=== PATIENT | male | born 1980 | race Caucasian/White ===

== ENCOUNTER → 2018-12-06 08:36 | Outpatient (CLI) | payer MEDICARE, SELFPAY ==
--- NOTE | 2018-12-06 08:18 | RAD_ITS ---
STUDY: X-RAY - LUMBAR SPINE REASON FOR EXAM: Male, 38 years old. Low back pain, no known injury TECHNIQUE: 4 view(s) of the lumbar spine were obtained. COMPARISON: None FINDINGS: Normal lumbar lordosis. There is no substantial scoliosis. There is a normal alignment of the vertebrae. Normal vertebral bodies and endplates. Normal disc space heights. The soft tissue structures are unremarkable. RAD/L/S Spine Bending Flex/Ext IMPRESSION: Normal x-ray examination of the lumbar spine. Electronically Signed: Torey Ardon MD at 19:42 EDT , Service support ,
--- NOTE | 2018-12-06 08:45 | US_ITS ---
STUDY: ABDOMINAL ULTRASOUND REASON FOR EXAM: Male, 38 years old. Abdominal pain, nausea and vomiting. TECHNIQUE: Transabdominal ultrasound was performed with real-time and static alford scale imaging. TECHNICAL QUALITY: Adequate. COMPARISON: None. FINDINGS: Liver: The liver measures 16 cm. There is increased echogenicity consistent with fatty infiltration. The bile ducts are within normal limits. There is hepatic color flow. The direction of portal flow is hepatopetal. There is no demonstrated mass lesion. Gallbladder: Normal distended gallbladder. The gallbladder wall measures 2 mm. There is a negative sonographic Paiz's sign. There is no pericholecystic fluid. There is a small echogenic shadow appears to be attached to the gallbladder wall measures about 3 mm which could represent small gallbladder polyp. Common Bile Duct (C.B.D.): The common bile duct measures 3 mm. Pancreas: The pancreas as seen on this examination is grossly unremarkable. There is normal echogenicity of the pancreas. There is no demonstrated pancreatic mass or cyst. Spleen: The spleen is borderline in size. The spleen measures 12.6 cm. Right Kidney: Normal size of the right kidney. The right kidney measures 11.2 x 5 x 5.4 cm. Normal renal cortex. The right cortex measures 1.8 cm. There is no demonstrated renal mass or cyst. There is no right hydronephrosis. Left Kidney: Normal size of the left kidney. The left kidney measures 11.9 x 5 x 5 cm. Normal renal cortex. The left cortex measures 1.9 cm. There is no demonstrated renal mass or cyst. There is no left hydronephrosis. Aorta: There is no demonstrated abdominal aortic aneurysm. The abdominal aorta measures 2.6 cm in maximal transverse diameter proximally, 1.8 cm the mid aspect and 1.7 cm distally. I.V.C.: The IVC is patent. There is no ascites. US/Abdomen Complete IMPRESSION: 1. Probable small gallbladder polyp. Follow-up examination 6 months is recommended. 2. Fatty infiltration of the liver. 3. No evidence of hydronephrosis. Electronically Signed: Byron Tejeda MD at 15:58 EDT Tel , Service support ,
== END ==
PROVIDERS: Family Provider Family Medicine; PCP Family Medicine; Referring Provider Family Medicine; Visit Provider Family Medicine
DX: M54.5 Low back pain (principal); G89.29 Other chronic pain; R11.0 Nausea; R11.10 Vomiting, unspecified; R10.9 Unspecified abdominal pain
CPT/HCPCS: 72120; 76700

== ENCOUNTER → 2019-01-08 16:11 | Outpatient (CLI) | payer MEDICARE, SELFPAY ==
[2019-01-07 08:15] VITALS: BMI 30.5
--- NOTE | 2019-01-08 16:18 | MRI_ITS ---
HISTORY:L leg pain, bilateral knee pain, low back pain MR Spine Lumbar W/O Contrast Technique:Sagittal T1-T2 and STIR and axial T1 and T2-weighted images # of images including paperwork:121 Comparison:Radiographs of the lumbar spine obtained on December 06, 2018 Findings: The conus ends at the T12-L1 disc space and appears within normal limits. T12-L1:Only seen within the sagittal plane. No disc contour abnormality or canal stenosis. No neural foraminal narrowing L1-2:Mild disc desiccation. No disc contour abnormality or canal stenosis. No neural foraminal narrowing L2-3: Disc height and hydration are preserved. There is no evidence of the disc contour abnormality or canal stenosis. No significant neural foraminal narrowing or nerve root impingement. L3-4:Minimal annular bulge. No canal stenosis. No significant neural foraminal narrowing or nerve impingement L4-5: Disc height and hydration are preserved. There is no evidence of the disc contour abnormality or canal stenosis. No significant neural foraminal narrowing or nerve root impingement. L5-S1:There is a tiny central disc protrusion effacing the ventral thecal sac. No canal stenosis. No significant nerve impingement MRI/Spine Lumbar (Routine) IMPRESSION: There is minimal degenerative disc disease at the level of L1-2 and to lesser extent L3-4. Tiny central disc protrusion at L5-S1 but no canal stenosis and no nerve impingement at 1748 Reported and signed by: Nahomi Worthington DO Electronically Signed: Nahomi Worthington DO at 17:47 EDT Tel , Service support ,
== END ==
PROVIDERS: Family Provider Family Medicine; PCP Family Medicine; Referring Provider Family Medicine; Visit Provider Family Medicine
DX: M54.5 Low back pain (principal); G89.29 Other chronic pain; M54.16 Radiculopathy, lumbar region
CPT/HCPCS: 72148

== ENCOUNTER → 2019-01-19 09:09 | Outpatient (CLI) | payer MEDICARE, SELFPAY ==
[2019-01-16 09:11] VITALS: BMI 30.5
--- NOTE | 2019-01-19 09:13 | NM_ITS ---
CLINICAL: 38-year-old male with reported history of right upper quadrant abdominal pain and nausea. RADIONUCLIDE HEPATOBILIARY SCINTIGRAPHY COMPARISON: Abdominal ultrasound report 12/06/2018 FINDINGS: Following the intravenous administration of 5.2 mCi of 99m Tc Mebrofenin, hepatobiliary images reveal: 1. Relatively prompt and homogeneous radiopharmaceutical concentration is noted by a normal sized liver. No parenchymal defects are identified. 2. Gallbladder activity is identified at 15 minutes post radiopharmaceutical administration. 3. Small intestinal tract is observed at 30 minutes following tracer injection. 4. Washout of the radiopharmaceutical by the hepatic parenchyma appears qualitatively normal. Cholecystokinin (0.02 ug/kg) was administered intravenously over a 30-minute period. The post CCK gallbladder ejection fraction calculated at 20 minutes following Cholecystokinin administration was noted to be 51.0 % (normal greater than 35%). During 30 minutes of post CCK imaging, there is no scintigraphic evidence of reflux of the radiotracer into the common hepatic duct or refilling of the gallbladder. There is scintigraphic evidence of post CCK duodenal gastric reflux. MI/Hepatobilliary Img w/Pharm Int IMPRESSION: 1. A gallbladder ejection fraction calculated to be greater than 35% following the administration of Cholecystokinin makes the probability of functional hepatobiliary disease (gallbladder and/or sphincter of Oddi dyskinesia) and/or organic hepatobiliary disease (chronic acalculous cholecystitis and/or cystic duct syndrome) to be low. (Luis Felipe Perdomo et al, Journal of Nuclear Medicine 32:1695, 1990). 2. There is scintigraphic evidence of post CCK duodenal-gastric reflux as defined above. (Rosaura et al, Nucl Med Maryann Kathy Press pg. 35, 1980). Electronically Signed: Tito Pacheco DO at 21:49 EDT Tel , Service support ,
== END ==
PROVIDERS: Family Provider Family Medicine; PCP Family Medicine; Referring Provider Surgery; Visit Provider Surgery
DX: K21.9 Gastro-esophageal reflux disease without esophagitis (principal); R10.9 Unspecified abdominal pain
CPT/HCPCS: 78227; A9537; J2805

== ENCOUNTER 2019-02-20 10:28 | Day surgery (SDC) | payer MEDICARE, SELFPAY ==
[2019-01-16 09:11] VITALS: BMI 30.5
--- NOTE | 2019-02-20 | GASB_PTH ---
PATIENT: CHARLINE GALINDO LOC: EN U#:[id number] AGE/SX: 38/M ROOM: RE02/20/[address]: Dr. Charline Zheng MD : 1980 BED: DIS: 02/20/2019 SPEC #: [id number] RECD: 02/20/19 13:04 STATUS: BRITTNEY QUANG #: [id number] VINCE: 02/20/19 00:[address]: Charline Zheng DEPT: SURGICAL PATHOLOGY RECD BY: Epi Lama ENTERED: 02/20/19 13:07 SP TYPE: Gastric Bx JARRELL DR: DO Ericka Hunt Tissues: A - Gastric mucous membrane B - Gastric mucous membrane Procedures: Surgery Specimen Level IV HEADER OPERATION: Colonoscopy, EGD ([facility] [place]) PRE-OP DIAGNOSIS: Vomiting, RLQ pain TISSUE SUBMITTED: A - Antral biopsy for H. pylori and pathology, B - GE junction biopsy MICROSCOPIC DIAGNOSIS A. Gastric antrum, biopsy: Mild chronic gastritis. B. Gastroesophageal junction, biopsy: Fragments of gastric mucosa with mild chronic inflammation. No evidence of intestinal metaplasia. BIENVENIDO:rene 02/23/19 COMMENT A. The results of immunohistochemistry for Helicobacter pylori will be reported separately ([id number]). Alcian blue/PAS stain with matched control supports the above diagnosis. Squamous mucosa is not represented in the biopsy. Clinical correlation is suggested. MICROSCOPIC DESCRIPTION Slides are reviewed. GROSS DESCRIPTION A. Received is one container labeled with the patient name and designated antral biopsy. The specimen consists of multiple irregular fragments of light allen soft tissue that in aggregate measure 0.4 x 0.4 x 0.1 cm. The specimen is totally submitted in one cassette. B. Received is one container labeled with the patient name and designated GE junction biopsy. The specimen consists of two irregular fragments of light allen soft tissue that in aggregate measure 0.5 x 0.3 x 0.1 cm. The specimen is totally submitted in one cassette. /SJ:rene 02/20/19 TC: 3 CPT: 87992 x2, 47351 x1
[2019-02-20 10:50] VITALS: BP 129/72; PULSE 73; RESP 16; TEMP 36.9; O2SAT 100; BMI 30.5
--- NOTE | 2019-02-20 11:30 | IMM_PTH ---
PATIENT: CHARLINE GALINDO LOC: EN U#:[id number] AGE/SX: 38/M ROOM: RE02/20/[address]: Dr. Charline Zheng MD : 1980 BED: DIS: 02/20/2019 SPEC #: [id number] RECD: 02/20/19 13:13 STATUS: BRITTNEY QUANG #: [id number] VINCE: 02/20/19 11:[address]: Charline Zheng DEPT: IMMUNOHISTOCHEMISTRY RECD BY: Izabel Cooper ENTERED: 02/20/19 13:14 SP TYPE: IMMUNO OTHR DR: DO Ericka Hunt Tissues: A - Stomach, NOS Procedures: H Pylori (initial) PHYSICIAN & INSTITUTION [place] [id number] SPECIMEN INFORMATION: Tissue Source: A - Antral biopsy Clinical Info: Vomiting, RLQ pain Specimen Number: [id number] CPT code: 58918 METHODOLOGY: Deparaffinized sections of prefer/formalin-fixed tissue or PAP/DQ stained slides are incubated with monoclonal/polyclonal antibodies/oligonucleotide probes. Localization is made via biotin free immunoperoxidase method. Appropriate controls are performed and reacted as expected. Results on target cell population are indicated in the following table: RESULTS: ANTIBODY / CLONE RESULT Block A H Pylori (polyclonal) negative These tests were developed and their performance characteristics determined by [facility]. They may not have been cleared or approved by the U.S. Food and Drug Administration. The FDA has determined that such clearance or approval is not necessary. INTERPRETATION: A. Antral biopsy: Negative for Helicobacter pylori organisms. AM:chris 02/23/19
--- NOTE | 2019-02-20 11:35 | H&P.OPEN ---
History of Present Illness Date of Admission: 02/20/19 The patient is a 38 year old M who was seen in the office about 1 month ago. Patient was complaining of vomiting and right lower quadrant pain. He reports that over the last week the vomiting has subsided but he is still having lower abdominal pain. He had a HIDA scan which showed normal ejection fraction. It did show reflux of bile. Past Medical/Surgical History - Planned Operation Planned Operative Procedure/s: egd/cscope Date of Operative Procedure: 02/20/19 Permit Signed: No S.O.S: No Is This Patient Having a Total Joint: No - Previous Hospitalizations/Surgeries HX Hospitalizations: No HX of Surgeries: heel spur left Any Problems With Anesthesia: No You/Your Family Experience Fever (Hyperthermia) With Anes: No Cholinesterase deficiency: No - Cardiovascular Hx Chest Pain within Last 2 months: No Hx of Irregular Heartbeat and/or Afib: No Hx Heart Attack: No Hx Congestive Heart Failure: No Hx Rheumatic Fever: No Hx Hypertension: No Hx Internal Defibrillator: No Hx Pacemaker: No Hx Cardiac Catheterization: No Hx Cardiac Surgery/Stents/Etc.: No Hx Stress Test: No HX Edema: No Hx Pain in Legs when Walking/Leg Cramps: Yes - PAIN TO LEGS - Respiratory Chronic Cough: Yes - SMOKER COUGH HX of Shortness of Breath: Yes - SOB WITH 2 FLIGHTS OF STAIRS Hoarseness: No Hx Chronic Obstructive Pulmonary Disease (COPD): No Hx Asthma: No Hx Emphysema: No Hx Sleep Apnea: No Hx Oxygen Use at Home: No Hx Respiratory Tract Infection/Cold (presently): No Do You Snore Loudly (louder than talking or can be heard): Yes Do You Often Feel Tired/ Fatigued/ Sleepy Dring Daytime?: Yes Has Anyone Observed You Stop Breathing During Sleep?: Yes Result (for STOP score): Positive Hx Smoking: Yes - 1-1.5PPD 20 YRS Smoking Status: Current every day smoker - Gastrointestinal Hx Gastroesophageal Reflux: Yes Controlled With Meds: No Hx Gastrointestinal Disorders: Yes - IBS Hx Gastrointestinal Bleed: No Hx Ulcer: No - . Hx Hiatal Hernia: No Difficulty Chewing/Swallowing: No Recent Onset of Swallowing Problems: No Special diet followed at home: No Hx Unplanned Weight Loss of 20#: No HX Unplanned Weight Gain of 20#: No - Neurological Hx Seizures: No HX Syncope/Blackout Spells/Unconsciousness: No Hx CVA/Stroke: No Hx Transient Ischemic Attacks (TIA): No Hx Multiple Sclerosis: No Hx Parkinson's Disease: No Hx Head/Neck Injury: No Hx Headaches: No Hx Back Injury/Pain: Yes - chronic back pain/left leg pain Recent Onset of Speech Difficulty: No Restless Legs: No Does patient have nerve stimulator: No Patient instructed to have device shut off: No Rep notified?: No - Blood Disorder Hx Leukemia: No Bleeding Tendencies: No Hx Deep Vein Thrombosis: No Hx High Cholesterol: No Blood Transmitted Disease: No Hx Hepatitis: No Hx Cirrhosis: No Hx Anemia: No Hx Blood Disorders: No - Genitourinary Hx Renal Disease: No - Musculoskeletal Hx Arthritis: Yes Hx Rheumatoid Arthritis: No Hx Gout: No Recent Onset of an Orthopedic Problem: No - LEFT FOOT - Endocrine Hx Diabetes: No Thyroid Disease: No Hx Steroid Therapy: No - Psycho/Social Hx Substance Use: Yes - marijuna use prn Hx Alcohol Use: No Hx Anxiety: Yes - on med Hx Depression: Yes - on med Mental Illness: Yes - adhd/bipolar Hx Dementia: No - Miscellaneous Hx Cancer: No Recent Exposure to Contagious Disease: No Active MRSA: No Hx of C-Diff: No Any Loose Teeth: No Allergies Penicillins Allergy (Verified 02/16/19 15:35) Anaphylaxis - Discharge Is Pt Admitted From a Longterm, or a [facility]: No Who Could Help: family After D/C, Where Do you Plan to Go: Return Home - Physical Exam General: Alert, Oriented x3 Neck: No JVD Lungs: Normal air movement Cardiovascular: Regular rate, Regular Rhythm Abdomen: Soft, Non Tender, Non-Distended Vital Signs Temp Pulse Resp BP Pulse Ox 98.5 F 73 16 129/72 H 100 02/20/19 10:50 02/20/19 10:50 02/20/19 10:50 02/20/19 10:50 02/20/19 10:50 Oxygen Delivery Method Room Air Weight: 201 lb 0.985 oz Body Mass Index (BMI) 30.5 Assessment/Plan 38-year-old male with lower abdominal pain and constant vomiting 1. patient was having a lot of vomiting and HIDA scan was ordered and it was normal with an ejection fraction of 51% although it did show bile reflux. Patient reports that his vomiting has subsided but he is still having lower abdominal pain. Patient will proceed with EGD and colonoscopy. 2. I explained endoscopy in detail to the patient. I explained the risks including but not limited to stroke or heart attack with anesthesia, perforation of the GI tract, bleeding, infection. I explained that any of these could necessitate further emergency surgery. The patient understands and all questions were answered sufficiently. The patient wishes to proceed with procedure. Jimmy Zheng MD Pager: [facility] [address] [place] [address] [address] [place] [address] Office: Surgery Risks - Colonoscopy Risks Include but are not Limited To: Risks include but are not limited to: Bleeding, perforation requiring further surgery, inability to complete colonoscopy requiring barium enema.
--- NOTE | 2019-02-20 12:14 | OP.ENDO_ITS ---
02/20/2019 Ericka Tejada [address] [place] [address] Re : Upper GI endoscopy procedure for Jimmy Mae Dear Dr. Tejada This procedure was performed on Wednesday, February 20, 2019. My impressions and recommendations are as follows: Impressions : - Esophageal mucosal changes suspicious for short-segment Tsang's esophagus. Biopsied. - Biopsies were taken with a cold forceps for Helicobacter pylori testing. Recommendations : - Discharge patient to home. - Resume previous diet. - Continue present medications. - Await pathology results. My findings are described in the full procedure note, which is enclosed. If I can be of further assistance, please feel free to contact me at Doctor phone number(s): , Work: . Sincerely, Jimmy Zheng MD 02/20/2019 12:13:49 PM This report has been signed electronically.
[2019-02-20 12:15] VITALS: BP 115/80; BP 129/72; PULSE 76; RESP 18; TEMP 37.1; O2SAT 96
--- NOTE | 2019-02-20 12:16 | OP.ENDO_ITS ---
02/20/2019 Ericka Tejada [address] [place] [address] Re : Colonoscopy procedure for Jimmy Mae Dear Dr. Tejada This procedure was performed on Wednesday, February 20, 2019. My impressions and recommendations are as follows: Impressions : - The entire examined colon is normal on direct and retroflexion views. - No specimens collected. Recommendations : - Discharge patient to home. - Resume previous diet. - Continue present medications. - Return to my office in 1 week. - Repeat colonoscopy at age 51. My findings are described in the full procedure note, which is enclosed. If I can be of further assistance, please feel free to contact me at Doctor phone number(s): , Work: . Sincerely, Jimmy Zheng MD 02/20/2019 12:16:09 PM This report has been signed electronically.
[2019-02-20 12:20] VITALS: BP 121/71; BP 129/72; PULSE 77; RESP 16; O2SAT 95
[2019-02-20 12:25] VITALS: BP 108/59; BP 129/72; PULSE 81; RESP 18; O2SAT 97
[2019-02-20 12:30] VITALS: BP 107/62; BP 129/72; PULSE 88; RESP 18; TEMP 36.8; O2SAT 96
[2019-02-20 13:00] VITALS: BP 129/72
== END 2019-02-20 13:01 | disposition home or self-care (01) ==
LOC: EN 10:28 → AC 10:29
PROVIDERS: Family Provider Family Medicine; PCP Family Medicine; Referring Provider Family Medicine; Visit Provider Surgery
PROC: 0DJD8ZZ Inspection of Lower Intestinal Tract, Via Natural or Artificial Opening Endoscopic (ICD-10-PCS; CPT 45378; principal; 2019-02-20 11:25)
DX: K29.50 Unspecified chronic gastritis without bleeding (principal); K22.8 Other specified diseases of esophagus; K21.9 Gastro-esophageal reflux disease without esophagitis; R11.10 Vomiting, unspecified; R10.31 Right lower quadrant pain; F90.9 Attention-deficit hyperactivity disorder, unspecified type; F31.9 Bipolar disorder, unspecified; F41.9 Anxiety disorder, unspecified; F17.200 Nicotine dependence, unspecified, uncomplicated; F12.90 Cannabis use, unspecified, uncomplicated; Z79.899 Other long term (current) drug therapy
CPT/HCPCS: 43239; 45378; 88305; 88342; J7120; J2405

== ENCOUNTER 2019-02-27 16:30 | Outpatient (RCR) | payer MEDICARE, SELFPAY ==
[2019-01-16 09:11] VITALS: BMI 30.5
--- NOTE | 2019-01-28 17:34 | HP.PTEVAL_ITS ---
Patient's Visit Information CHARLINE GALINDO is a 38 year old M referred to Physical Therapy by Ericka Tejada DO with a diagnosis of LUMBAR BACK PAIN AND DDD. Date of Evaluation: 01/28/19 Physical Therapist: Bel Jeffery PT, Cert MDT - Visit Plan Frequency: 2-3x /Week Duration: 4-6 Weeks Plan: AQUATIC THERAPY FOR BACK AND LLE PAIN RELIEF, POSTURE CORRECTION/STRENGTHENING, INSTRUCTION IN APPROPRIATE BODY MECHANICS AND ACTIVITY MODIFICATIONS. DLS STARTING WITH A NEUTRAL SPINE PROGRESSING ROM TOLERATED. STANLEY LE ROM, STRETCHING AND STRENGTHENING. HEP INSTRUCTION. 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 Disability: ON DISABILITY FOR ABOUT 5 YEARS NOW FOR BACK, KNEES, AND MENTAL CONDITIONS. STATES HE WANTS TO GO BACK TO WORK AND DOESN'T LIKE STAYING HOME WITH THE KIDS. Present symptoms: BACK TIGHTENS UP AND LOCKS. LEFT LEG WEAKNESS. LEFT LE PAIN, NUBNESS AND TINGLING TO TOES. Present since: YEARS AGO. Pain Scale: WORST 7/10, LEAST 1/10. Currently: 09/07. Commenced as a result of: NO APPARENT REASON BUT NEPHEW DID JUMP ON HIM ONCE. Symptoms at onset: LOW BACK. Worse: PROVIDER RELATIONS MANAGER, LIFTING, BENDING, TWISTING. Better: GETTING UP AND MOVING AROUND. Disturbed sleep: YES. Previous history/Previous treatment: AQUATIC THERAPY - STARTED TO HELP BUT RAN OUT OF VISITS. AT FIRST IT DIDN'T SEEM TO BE HELPING BUT THEN STARTED TO SEE IMPROVEMENT. Coughing/sneezing/straining: POSITIVE SOMETIMES. Gait: HUNCHED OVER AND LIMP ON LLE. LEFT FOOT HURTS AND WALKS ON TOES SOMETIMES. Difficulty initiating urinatin: NO. Accidents: NO. Unexplained weight loss: NO. Imaging: RECENT LUMBAR MRI: There is minimal degenerative disc disease at the level of L1-2 and to. lesser extent L3-4. Tiny central disc protrusion at L5-S1 but no canal stenosis and no nerve. impingement. PMH: BIPOLAR DISORDER, MIGRAINES, REFLUX, KNEE PAIN, CHRONIC LBP, ADHD, LEFT FOOT PLANTAR FASCIOTOMY, DEPRESSION, CHRONIC PAIN SYNDROME. OTHER: PATIENT REPORTS THAT AFTER MRI RECOMMENDED CAROLYNE'S AND PHYSICAL THERAPY AND HE SAID NO TO THE CAROLYNE'S BUT AGREED TO PT. - Objective Sitting/Standing Posture: POOR. Lordosis: NORMAL. Lateral shift: NO. Relevant shift: N/A. Active Correction of posture: BETTER. Other Observations: INDEP GAIT AND TRANSFERS INTO PT WITH NO GROSS DEVICATIONS NOTED. Motor deficit: RIGHT LE WFL. PATIENT IS RELUCTANT TO HAVE ME TEST THE LLE BUT HE DOES ACTIVELY FULLY EXTEND HIS LEFT KNEE IN SITTING AND HE IS ABLE TO DOSIFLEX HIS LEFT FOOT TO NEUTRAL. Sensory deficit: DECREASED LIGHT TOUCH SENSATION OF THE LEFT THIGH AND KNEE COMPARED TO THE RIGHT. ROM deficit: LLE: KNEE FLEX TO AT LEAST 100 DEG BUT PATIENT C/O PAIN WITH TESTING. LEFT ANKLE DORSIFLEX TO AT LEAST NEUTRAL BUT PATIENT AGAIN RELUCTANT TO GO FURTHER DUE TO C/O PAIN. Reflexes: NT DUE TO PATIENT BEING ANXIOUS. Dural Signs: POSITIVE LLE. Lumbar mvmt loss: flex - MOD. ext - MOD. R SG - MIN. L SG - MIN. INCREAED C/O STANLEY AND CENTRAL LBP WITH LUMBAR ROM TESTING ALL PLANES. Core strength: POOR. Palpation: NO ACUTE TENDERNESS OF LUMBOSACRAL REGION - Goals Goal 1:: DECREASE C/O LOW BACK AND LLE SX'S. Goal Time Frame: 4-6 Weeks Goal 2:: IMPROVE LIFTING, WALKING, SITTING, STANDING, SLEEP, SOCIAL LIFE, TRAVEL, CHILDCARE AND HOMEMAKING FUNCTION Goal Time Frame: 4-6 Weeks Goal 3:: INSTRUCT IN PROPHLAXIS Goal Time Frame: 4-6 Weeks - Rehabilitation Potential Rehabilitation Potential: Fair - Anticipated Interventions Patient/Client Instruction: Educate patient on: Condition, Plan of Care, Risk Factors, Benefits of Fitness Program For the Purpose of:: To improve self management Therapeutic Exercise to Include: Strength training, Body mechanics, Postural training, Flexibilty training, Gait and locomotor training, In an aquatic setting, Active ROM, Dynamic Lumbar Stabilization For the Purpose of:: To decrease pain, To increase ROM, To improve muscle performance and motor function, To increase tolerance to activity/condition/position, To improve ability of physical actions for home/community/work/leisure, To improve gait and locomotor functions Thank you for the opportunity to evaluate your patient. For Medicare and Medicare HMO plans, please review the plan of care and approve it. It will need to be FAXED BACK to us at [phone] for Medicare purposes. For Medicare only, by signing this I certify the plan of care. Please let me know if there are questions or concerns regarding this plan of care. Physician Signature: Date:
--- NOTE | 2019-05-07 14:46 | HP.PT.NRP ---
HP - Discharge Summary (1) - Patient Information CHARLINE GALINDO was seen in my office for initial evaluation on 01/28/19. The following Plan of Care was established for this patient: Initial Frequency: 2-3x /Week Initial Duration: 4-6 Weeks - Anticipated Interventions Patient/Client Instruction: Educate patient on: Condition, Plan of Care, Risk Factors, Benefits of Fitness Program For the Purpose of:: To improve self management Therapeutic Exercise to Include: Strength training, Body mechanics, Postural training, Flexibilty training, Gait and locomotor training, In an aquatic setting, Active ROM, Dynamic Lumbar Stabilization For the Purpose of:: To decrease pain, To increase ROM, To improve muscle performance and motor function, To increase tolerance to activity/condition/position, To improve ability of physical actions for home/community/work/leisure, To improve gait and locomotor functions This patient was last seen in our office 02/27/19. Pertinent comments regarding their Physical therapy will appear below: This patient has not returned to Physical Therapy and is appropriate to return to MD for further follow-up as needed. At this point I will be discontinuing this patient from physical therapy. I would be happy to see this patient again in the future if found appropriate by the physician. Thank you! Bel Jeffery, PT, Cert MDT
== END 2019-02-27 19:00 | disposition home or self-care (01) ==
LOC: PT 16:30
PROVIDERS: Family Provider Family Medicine; PCP Family Medicine; Referring Provider Family Medicine; Visit Provider Family Medicine
DX: M54.5 Low back pain (principal); M51.36 Other intervertebral disc degeneration, lumbar region
CPT/HCPCS: 97113; 97162; 97530

== ENCOUNTER → 2019-07-08 16:16 | Outpatient (CLI) | payer MEDICARE, SELFPAY ==
[2019-07-08 17:28] LABS: OXY Internal Control LINE = VALID (VALID); Oxycodone Drug Screen Positive (<100 ng/mL)
[2019-07-08 17:36] LABS: Amphetamine Urine VISTA NEGATIVE (<1000 ng/mL); Barbiturate Urine VISTA NEGATIVE (< 200 ng/mL); Benzodiazepine Urine VISTA NEGATIVE (< 200 ng/mL); Cocaine Urine VISTA NEGATIVE (< 300 ng/mL); Ecstacy Urine VISTA NEGATIVE (< 500 ng/mL); Methadone Urine VISTA NEGATIVE (< 300 ng/mL); PCP Urine VISTA NEGATIVE (< 25 ng/mL); THC Urine VISTA POSITIVE (< 50 ng/mL); Vista UDS pH Range 5
== END ==
PROVIDERS: Family Provider Family Medicine; PCP Family Medicine; Visit Provider Family Medicine
DX: F11.90 Opioid use, unspecified, uncomplicated (principal); Z51.81 Encounter for therapeutic drug level monitoring
CPT/HCPCS: 80307; 80365; G0480

== ENCOUNTER 2020-05-14 13:00 | Emergency (ER) | payer MEDICARE, SELFPAY ==
[2020-05-14 13:02] VITALS: BP 127/92; PULSE 98; RESP 16; TEMP 35.8; O2SAT 99; BMI 29.7
[2020-05-14 13:07] VITALS: BP 127/92; PULSE 98; RESP 16; TEMP 35.8; O2SAT 99
--- NOTE | 2020-05-14 13:13 | ED.VIS.GEN ---
History of Present Illness Informant: Patient Onset: Today Narrative: 40-year-old male presents with dental pain. He was told he needed his wisdom teeth removed in August but has not been able to see a dentist due to Covid and insurance issues. He has had intermittent pain in the right lower molar since then. He states today he woke up and his right lower jaw was swollen. Denies fevers, chills, nausea, vomiting, difficulty swallowing or breathing. He takes ibuprofen at home and Percocet for arthritis. <Ericka Santiago - Last Filed: 05/14/20 13:13> <Jaxon Mo - Last Filed: 05/14/20 14:42> Chief Complaint: Dental Past Medical History Smoking Status: Current every day smoker <Ericka Santiago - Last Filed: 05/14/20 13:13> <Jaxon Mo - Last Filed: 05/14/20 14:42> - Allergies and Home Meds Allergies/Adverse Reactions: Allergies Penicillins Allergy (Verified 02/16/19 15:35) Anaphylaxis Primary Care Physician: Ericka Tejada DO [Primary Care Provider] - Review of Systems General: Denies: Chills, Fever, Sweats Eyes: Denies: Visual changes - bilaterally, Diplopia ENT: Reports: - - dental pain. Denies: Rhinorrhea, Sore throat Cardiovascular: Denies: Chest pain, Palpitations Respiratory: Denies: Dyspnea, Cough, Dyspnea on exertion Gastrointestinal: Denies: Abdominal pain, Nausea, Vomiting, Diarrhea, Melena, Hematochezia Genitourinary: Denies: Dysuria, Hematuria, Frequency Musculoskeletal: Denies: Back pain, Extremity Pain Skin: Denies: Rash, Wounds Neurological: Denies: Headache, Weakness, Numbness <Ericka Santiago - Last Filed: 05/14/20 13:13> Physical Exam Vital Signs/Narrative: Vital Signs Temp Pulse Resp BP Pulse Ox 05/14/20 13:07 96.4 F L 98 16 127/92 H 99 05/14/20 13:02 96.4 F L 98 16 127/92 H 99 General: Well nourished, Well developed, No Acute Distress Head: Normocephalic, Atraumatic Eyes: Perrl, EOMI ENT: Moist mucous membranes, No rhinorrhea, - - Skin appears normal, mild swelling of right lower jaw line, tender to palpation over right lower back molar and gum line over nonerupted wisdom tooth, no loose dentition, no palpable abscess, no trismus or tongue elevation, sublingual space is soft, airway intact, neck has good range of motion. Neck: Supple, Nontender Cardiovascular: Regular rate, Regular rhythm, No murmurs Respiratory: No distress, CTA bilaterally, Chest nontender Abdomen: Soft, Nontender, Nondistended, Normal bowel sounds Back: Nontender, Normal Inspection Extremities: Nontender, No edema Skin: Normal color, No rash Neurological: Alert, Oriented x3, Cranial nerves II-XII grossly intact, Normal Strength, Normal Sensation Psychological: Normal affect, Normal Mood <Ericka Santiago - Last Filed: 05/14/20 13:13> Vital Signs/Narrative: Vital Signs Temp Pulse Resp BP Pulse Ox 05/14/20 13:07 96.4 F L 98 16 127/92 H 99 05/14/20 13:02 96.4 F L 98 16 127/92 H 99 <Jaxon Mo - Last Filed: 05/14/20 14:42> Diagnostic/Tx/Re-eval - Medical Decision Making Patient presented with dental pain. Patient appears well and nontoxic. Vital signs are within normal limits. He does have swelling of the right lower jaw line and tenderness over the back right lower molar. No periapical abscess on exam. He was given Clindamycin (penicillin allergic) and advised to take ibuprofen. Follow up with a dentist. Return for new or worsening issues. <Ericka Santiago - Last Filed: 05/14/20 13:13> - Medical Decision Making Patient presents with dental pain. He has dental caries and decay but does not have a periapical abscess. He'll be treated with antibiotics and discharged in stable condition <Jaxon Mo - Last Filed: 05/14/20 14:42> ED Disposition <Ericka Santiago - Last Filed: 05/14/20 13:13> <Jaxon Mo - Last Filed: 05/14/20 14:42> - Plan for ED Patient: Disposition: Home or Assisted Living Diagnosis: Dental abscess Instructions: Dental Abscess Prescriptions: Clindamycin [Cleocin] 450 mg PO TID #63 cap Transmission Status: Received by [employer] [facility] Referrals: Ericka Tejada DO [Primary Care Provider] -
== END 2020-05-14 13:39 | disposition home or self-care (01) ==
LOC: ED 13:18
PROVIDERS: Emergency Provider Physician Assistant; PCP Family Medicine
DX: K04.7 Periapical abscess without sinus (principal); F17.200 Nicotine dependence, unspecified, uncomplicated; Z88.0 Allergy status to penicillin
CPT/HCPCS: 99282

== ENCOUNTER 2020-05-16 08:19 | Emergency (ER) | payer MEDICARE, MEDICAID, SELFPAY ==
[2020-05-16 08:21] VITALS: BP 131/84; PULSE 69; RESP 17; TEMP 36.6; O2SAT 100; BMI 31.0
--- NOTE | 2020-05-16 08:34 | ED.VIS.DENTA ---
History of Present Illness Chief Complaint: Dental Informant: Patient Onset: Days Context: Sudden Onset Timing: Continuous Quality: Pain Location: Right jaw Current Severity: Mild Maximum Severity: Moderate Worsened by: Chewing, swelling Relieved by: - - Patient has prescription for Percocet with no relief. He has not taken any NSAIDs. Associated Symptoms: Jaw Swelling, Facial Swellling Narrative: Patient is a 40-year-old male who was seen on May 14. He was diagnosed with dental abscess. He denies fever, chills night sweats. He denies history medic fever, heart murmur, SBE or being immune suppressed. He was placed on antibiotic. Since he has a prescription for Percocet he was not prescribed Percocet. He was instructed to come back if there is swelling. He denies drooling. He denies inability to open or close his mouth completely. He denies change in voice. Prior similar symptoms: Yes Recent Illness/Hospitalization: Yes - Past Medical History (1) Dental abscess Status: Acute Past Medical History - Allergies and Home Meds Allergies/Adverse Reactions: Allergies Penicillins Allergy (Verified 05/16/20 08:20) Anaphylaxis Primary Care Physician: Ericka Tejada DO [Primary Care Provider] - Prior records reviewed: Yes Lives: Alone Smoking Status: Current every day smoker Alcohol: Rare Drugs: None Review of Systems General: Denies: Chills, Fever, Malaise, Subjective, Sweats Eyes: Denies: Visual changes - bilaterally, Blurred Vision - bilaterally, Diplopia ENT: Denies: Rhinorrhea, Sore throat Cardiovascular: Denies: Chest pain, Palpitations Respiratory: Denies: Dyspnea, Cough, Dyspnea on exertion Gastrointestinal: Denies: Nausea, Vomiting Musculoskeletal: Denies: Neck pain Skin: Denies: Rash Neurological: Denies: Headache Hematologic: Denies: Easy bruising, Easy bleeding Physical Exam Vital Signs/Narrative: Vital Signs Temp Pulse Resp BP Pulse Ox 05/16/20 08:21 97.8 F 69 17 131/84 H 100 Inital Vital Signs reviewed: Yes General: Well nourished, Well developed, Unkempt Head: Normocephalic, Atraumatic ENT: Moist mucous membranes. Negative for: Nasal congestion, No nasal trauma Mouth/Throat: Normal oral mucosa, Normal posterior oropharynx, No sublingual edema, Normal Stensen's duct, Dental abscess, Focal dental decay, Focal gum swelling, Gingivitis, Tenderness on tooth percussion, Widespread dental decay. Negative for: Normal inspection lips/gums, No dental tenderness, No focal abscess, Apthous ulcer, Dental trauma, Dental avulsion, Trismus Neck: Supple, No lymphadenopathy, Nontender, No JVD, - - There is no evidence of facial cellulitis. Trachea is midline. There is no inspiratory expiratory stridor.. Negative for: Anterior submandibular lymphadenopathy, Posterior submandibular lymphadenopathy, Anterior submental lymphadenopathy, Posterior submental lymphadenopathy, Soft tissue swelling, Submandibular soft tissue swelling, Submental soft tissue swelling, Parotid tenderness Cardiovascular: Regular rate, Regular rhythm, No murmurs, Normal S1, Normal S2 Respiratory: No distress, CTA bilaterally Skin: Normal color, No rash, No Trauma Neurological: Alert, Oriented x3, Cranial nerves II-XII grossly intact, Normal Strength, Normal Sensation, Normal Gait Psychological: Normal affect Diagnostic/Tx/Re-eval - Medical Decision Making Patient has apical abscess with fistulization. There is soft tissue swelling. There is no obvious fluctuance that would be amenable to I&D. Furthermore based on discussion with preparation supervisor freezing patient does not require emergent I&D. He is on antibiotics. He was instructed to follow-up with the [facility] clinic. He was given prescription for NSAID since this is an inflammatory process. He was instructed to continue taking the antibiotic and the pain medicine as prescribed. ED Disposition - Plan for ED Patient: Disposition: Home or Assisted Living Diagnosis: Dental abscess Instructions: Dental Abscess Prescriptions: Naproxen [Naprosyn] 500 mg PO BID #14 tab Transmission Status: Pending to [employer] #30 Referrals: Ericka Tejada DO [Primary Care Provider] - Lillian Howard [NON-STAFF] - As soon as possible Additional Instructions: If you are unable to open or close her mouth completely return to the emergency department If you have difficulty speaking, difficulty swallowing return to the emergency department. If you have drooling return to the emergency department immediately Take antibiotics as instructed until gone. The swelling may resolve and open on its own. There is no need for emergent incision and drainage.
[2020-05-16] MEDS: oxyCODONE 5 MG Tablet PO (08:51)
[2020-05-16] MEDS: Naproxen 250 MG Tablet 500 MG PO (08:52)
[2020-05-16 09:02] VITALS: PULSE 83; RESP 16; O2SAT 97
--- NOTE | 2020-05-16 09:03 | ED.RN ---
THIS NURSE REVIEWED D/C INSTRUCTIONS WITH PT. PT VERBALIZED UNDERSTANDING OF INSTRUCTIONS. PT DENIES FURTHER NEEDS OR QUESTIONS AT THIS TIME
== END 2020-05-16 09:03 | disposition home or self-care (01) ==
LOC: ED 08:51
PROVIDERS: Emergency Provider Emergency Medicine; PCP Family Medicine
DX: K04.7 Periapical abscess without sinus (principal); F17.200 Nicotine dependence, unspecified, uncomplicated; Z88.0 Allergy status to penicillin
CPT/HCPCS: 99283

== ENCOUNTER 2021-09-15 13:03 | Emergency (ER) | payer MEDICARE, MEDICAID, SELFPAY ==
[2021-09-15 13:04] VITALS: BP 158/96; PULSE 79; RESP 18; TEMP 36.1; O2SAT 99; BMI 28.3
--- NOTE | 2021-09-15 13:07 | EKG12_ITS ---
Test Reason : CP Blood Pressure : / mmHG Vent. Rate : 071 BPM Atrial Rate : 071 BPM P-R Int : 120 ms QRS Dur : 082 ms QT Int : 378 ms P-R-T Axes : -23 078 034 degrees QTc Int : 410 ms Normal sinus rhythm Normal ECG Confirmed by SOCO FULLER, CONNRO ([id number]), department editor ESTHER FREY ([id number]) on 09/18/2021 11:07:59 A M Referred By: KAYKAY Confirmed By:CARMEN WAN MD
[2021-09-15 13:20] LABS: Absolute Neutrophil Count 6.3 X10^3/uL (2.0-7.7); Basophil# 0.09 X10^3/uL; Basophil% 0.9 % (0-1); Eosinophil# 0.33 X10^3/uL; Eosinophils% 3.2 % (0-5); Hemoglobin 17.4 g/dL (13.0-16.5); Lymphocyte % 25.8 % (19-41); Mean Corp Hgb Conc 34.1 g/dL (32-36); Mean Corpuscular Hgb 31.2 pg (27.0-32.0); Mean Corpuscular Volume 91.6 fL (80-94); Mean Platelet Vol. 9.4 fl (6.2-12.0); Monocyte# 0.93 X10^3/uL; Monocyte% 8.9 % (0-10); NRBC Flagged by Analyzer 0 % (0-5); Neutrophil # 6.34 X10^3/uL (2.7-7.7); Neutrophil % 60.6 % (47-70); Platelet Count 262 K/mm3 (150-450); RBC Distribution Width CV 13.3 % (11.6-14.6); RBC Distribution Width SD 45.2 fl (35.1-43.9); Red Blood Count 5.57 M/mm3 (4.6-6.2); White Blood Count 10.5 K/mm3 (4.4-11.0)
[2021-09-15 13:37] LABS: Anion Gap 2 (5-15); BUN 23 mg/dL (7-18); BUN/Creat Ratio 22.8 RATIO (10-20); Calcium,Total 9.6 mg/dL (8.5-10.1); Chloride 107 mmol/L (98-107); Creatinine, Serum 1.01 mg/dL (0.70-1.30); EST Glomerular Filtration Rate 87 mL/min (>60); Est Glom Filt Rate - Afr Amer 105 mL/min (>60); Estimated Creatinine Clearance 100.39 ml/min; Glucose 110 mg/dL (74-106); Potassium 4.1 mmol/L (3.5-5.1); Sodium Level 138 mmol/L (136-145); Troponin-I HS 4 pg/mL (3.0-78.0)
--- NOTE | 2021-09-15 14:10 | RAD_ITS ---
STUDY: X-RAY CHEST REASON FOR EXAM: Male, 41 years old. pt states stabbing left sided chest pain x few weeks, smoker x 25 years TECHNIQUE: Single AP portable view of the chest. COMPARISON: None. FINDINGS: The lungs are clear and expanded. There is no demonstrated pleural abnormality. Normal size heart. Normal mediastinum and aly. Normal visualized pulmonary arteries. Normal visualized aortic arch and descending thoracic aorta. Normal visualized thoracic spine. Normal visualized ribs, clavicles, and shoulders. There is no demonstrated abnormality of the visualized soft tissue structures of the upper abdomen. RAD/Chest 1 View (Portable) IMPRESSION: Normal x-ray examination of the chest. Electronically Signed: Harish Raymond MD at 15:05 EDT ,
--- NOTE | 2021-09-15 14:38 | EDS_ITS ---
HPI History of Present Illness Chief Complaint: Chest Pain Informant: patient Onset/Context/Timing Onset: Today Activity at onset: gradual Timing: Intermittent and Lasts (10 minutes) Quality: Positive for Sharp Location: Left Chest Worsened By: Nothing Relieved By: Nothing Associated Symptoms: Positive for Diaphoresis, Dyspnea and Palpitations; Negative for Nausea, Vomiting, Cough, Fever, Lightheadedness and Acid Reflux Narrative Narrative: Patient presents with left-sided chest pain that began today. Patient states it began approximately 5 hours prior to arrival. Patient states it has been intermittent. Patient states that he has had similar episodes over the past several days to weeks. Patient states that last approximately 10 minutes when it comes on. Patient describes the pain as stabbing. Patient states it is over the left upper chest. Patient states nothing makes it better nothing makes it worse. Patient admits to some diaphoresis. Patient admits to some shortness of breath. Patient also admits to some palpitations. [facility] Medical History (Updated 09/15/21 @ 16:[address] Enrico Wright DO) ADD (attention deficit disorder) Chronic back pain Depression Rheumatoid aortitis Home Medications esomeprazole magnesium 40 mg PO BID 11/14/16 [History Last Taken 11/16/16 06:00] dextroamphetamine-amphetamine 20 mg PO BID 02/16/19 [History Last Taken Unknown] oxycodone-acetaminophen 1 ea PO PRN PRN 02/16/19 [History Last Taken Unknown] clindamycin HCl 450 mg PO TID #63 cap 05/14/20 [Rx Last Taken Unknown] naproxen 500 mg PO BID #14 tab 05/16/20 [Rx Last Taken Unknown] Allergy/AdvReac Type Severity Reaction Status Date / Time Penicillins Allergy Anaphylaxis Verified 05/16/20 08:20 Family History Mother Bleeding disorder Heart disease Surgical History S/P foot surgery Social History Smoking Status: Current every day smoker alcohol intake: never ROS ROS ED Constitutional Constitutional ED: Denies chills or fever(s) Eyes Eyes: Denies blurry vision or change in vision ENT ENT ED: Denies rhinorrhea or sore throat Cardiovascular Cardiovascular: Reports as per HPI, chest pain and palpitations Respiratory/Chest Respiratory/Chest: Reports dyspnea; Denies cough Gastrointestinal Gastrointestinal: Denies abdominal pain, nausea or vomiting Genitourinary Genitourinary ED: Denies dysuria or hematuria Musculoskeletal Musculoskeletal: Denies back pain or neck pain Integumentary Denies abscess or rash Neurologic Neurologic: Denies headache(s) or weakness Allergic/Immunologic Allergic/Immunologic ED: Denies mouth swelling or urticaria EXAM Physical Exam Const Vital Signs: 09/15/21 13:04 Temperature 97 F L Temperature Source Temporal Pulse Rate 79 Respiratory Rate 18 Blood Pressure 158/96 H Blood Pressure Mean 116 Pulse Ox 99 Oxygen Delivery Method Room Air Positive well nourished and well developed General Appearance ED: well developed and NAD HEENT normocephalic and atraumatic Eyes PERRL and EOMs intact bilaterally Neck supple and no JVD Chest Wall palpation of chest normal Resp normal respiratory effort and clear to auscultation bilaterally Effort and Inspection: Negative for respiratory distress Cardio regular rate, regular rhythm and no murmurs GI normal to inspection, nondistended, normoactive bowel sounds, soft to palpation, non-tender and non-distended Extremity normal to inspection General Extremety ED: Negative for edema or tenderness General Extremity: Negative for edema Neuro oriented x3, CN's II-XII intact bilaterally and no sensory deficits noted Sensorium / Orientation: awake and alert Motor Exam: strength 5/5 throughout Psych mental status grossly normal Heart Score History: Slightly/Non-Suspicious ECG: Normal Age: </= 45 years Risk Factors: 1 or 2 Risk Factors Troponin: </= Normal Limit Score: 1 MDM MDM MDM Narrative Medical decision making narrative: EKG was obtained. On my interpretation, it showed a normal sinus rhythm with a rate of 71. NV interval, QRS interval, and QTc intervals were all normal. [place] was normal. There are no acute ST or T wave changes. Portable 1 view chest x-ray was obtained. On my interpretation, lung carias are clear. There is normal cardiac silhouette. Bony thorax is normal. There is no acute process noted. Radiologist also interpreted the x- ray and agrees. CBC and basic metabolic profile were obtained were within normal limits. High-sensitivity troponin was normal at 4. 2-hour repeat high- sensitivity troponin was less than 3. D-dimer was less than 0.27. Patient was advised of his findings. Patient has a HEART score of 1. Patient was advised that this is low risk for acute cardiac event. Patient was instructed to follow-up with his primary care physician in 5 to 7 days. Patient was instructed to take Tylenol or ibuprofen as needed for pain. Patient was instructed return if worse in any way. Patient understood and was agreeable with the plan. All questions were answered. Lab Data Attestation: I reviewed the patient's lab results. Labs: Laboratory Results - last 24 hr 09/15/21 09/15/21 09/15/21 13:10 13:10 13:10 WBC 10.5 RBC 5.57 Hgb 17.4 H Hct 51.0 MCV 91.6 MCH 31.2 MCHC 34.1 RDW Std Deviation 45.2 H RDW Coeff of Karl 13.3 Plt Count 262 MPV 9.4 Immature Gran % (Auto) 0.600 Neut % (Auto) 60.6 Lymph % (Auto) 25.8 [place] % (Auto) 8.9 Eos % (Auto) 3.2 Baso % (Auto) 0.9 Absolute Neuts (auto) 6.3 Absolute Lymphs (auto) 2.70 Nucleated RBC % 0 D-Dimer Quant (PE/DVT) < 0.27 L Sodium 138 Potassium 4.1 Chloride 107 Carbon Dioxide 29.0 Anion Gap 2 L BUN 23 H Creatinine 1.01 Estim Creat Clear Calc 100.39 Est GFR (MDRD) Af Amer 105 Est GFR (MDRD) Non-Af 87 BUN/Creatinine Ratio 22.8 H Glucose 110 H Calcium 9.6 Troponin I High Sens 4 09/15/21 15:15 WBC RBC Hgb Hct MCV MCH MCHC RDW Std Deviation RDW Coeff of Karl Plt Count MPV Immature Gran % (Auto) Neut % (Auto) Lymph % (Auto) [place] % (Auto) Eos % (Auto) Baso % (Auto) Absolute Neuts (auto) Absolute Lymphs (auto) Nucleated RBC % D-Dimer Quant (PE/DVT) Sodium Potassium Chloride Carbon Dioxide Anion Gap BUN Creatinine Estim Creat Clear Calc Est GFR (MDRD) Af Amer Est GFR (MDRD) Non-Af BUN/Creatinine Ratio Glucose Calcium Troponin I High Sens < 3 L Radiography Chest X-Ray - ED: 1 View, Read by ED Physician, Read by Radiologist and No Acute Disease Diagnostic Testing: Clinical Impression(s) from Imaging Studies Chest X-Ray 09/15/21 14:10 IMPRESSION: Normal x-ray examination of the chest. Electronically Signed: Harish Raymond MD at 15:05 EDT Reading Location ID and State: [facility] / MD , Service support , EKG Initial EKG: Attestation: I personally reviewed and interpreted this EKG as follows: Interpretation: Sinus Rhythm (71) and No Acute Injury Pattern Discharge Plan Triage Chief Complaint: Chest Pain ED Provider: Enrico Wright Dx/Rx/DC Orders Clinical Impression: Chest pain Instructions: ED Chest Pain, Uncertain Cause Prescriptions: No Action esomeprazole magnesium 40 MG capsule 40 mg PO BID RF: 0 dextroamphetamine-amphetamine 20 MG tablet 20 mg PO BID RF: 0 oxycodone-acetaminophen 1 EACH tablet 1 ea PO PRN PRN (Reason: Pain) RF: 0 clindamycin HCl 150 MG capsule 450 mg PO TID Qty: 63 RF: 0 naproxen 500 MG tablet 500 mg PO BID Qty: 14 RF: 0 Primary Care Provider: Ericka Tejada Referrals: Ericka Tejada DO [Primary Care Provider] - 5-7 Days Disposition Disposition: Home, Self Care
[2021-09-15 15:03] VITALS: O2SAT 99
[2021-09-15] MEDS: Aspirin 81 MG TAB.CHEW 324 MG PO (15:15)
[2021-09-15 15:47] LABS: Troponin-I HS < 3 pg/mL (3.0-78.0)
[2021-09-15 15:57] LABS: D-Dimer Quantitative (DVT/PE) < 0.27 FEU/ug/m (0.27-0.49)
[2021-09-15 16:25] VITALS: BP 149/79; PULSE 70; RESP 15; O2SAT 99
== END 2021-09-15 16:34 | disposition home or self-care (01) ==
PROVIDERS: Emergency Provider Emergency Medicine; PCP Family Medicine; Visit Provider Emergency Medicine
DX: R07.9 Chest pain, unspecified (principal); M06.9 Rheumatoid arthritis, unspecified; F17.200 Nicotine dependence, unspecified, uncomplicated
CPT/HCPCS: 71045; 80048; 84484; 85025; 85379; 93005; 99285; A4216

== ENCOUNTER → 2022-05-17 | Outpatient (CLI) | payer MEDICARE, MEDICAID, SELFPAY | END | disposition home or self-care (01) | PROVIDERS: PCP Family Medicine; Referring Provider Family Medicine; Visit Provider Family Medicine | DX: G47.30 Sleep apnea, unspecified (principal) | CPT/HCPCS: 95810 ==

== ENCOUNTER 2022-11-19 09:09 | Emergency (ER) | payer MEDICARE, MEDICAID, SELFPAY ==
[2022-11-19 09:10] VITALS: BP 139/91; PULSE 64; RESP 18; TEMP 36.3; O2SAT 100; BMI 30.8
--- NOTE | 2022-11-19 10:17 | ED.VIS.DENTA ---
HPI History of Present Illness Chief Complaint: Dental Informant: patient Onset/Context/Timing Onset: Month(s) Current Severity: Severe Maximum Severity: Severe Narrative Narrative: Patient presents secondary to dental pain. He states he has dental pain diffusely through his mouth. He has been dealing with this for years. He states he was initially seen at the [facility] but told that his needs are beyond what they could supply and they recommended he follow-up with another dental clinic. He states he has called multiple clinics and no one that takes his insurance is able to help him. He states has been taking Tylenol, ibuprofen, Aleve. He has not been on antibiotics for the last year or so. [facility] Medical History ADD (attention deficit disorder) Chronic back pain Depression Nicotine addiction Rheumatoid aortitis Home Medications dextroamphetamine-amphetamine 15 mg tablet (Adderall) 15 mg PO DAILY 06/13/22 [History Last Taken Unknown] chlorhexidine gluconate 0.12 % mouthwash 15 ml mucous membrane BID dental abscesses 2 months #473 mL 08/07/22 [Rx Last Taken Unknown] ipratropium bromide 21 mcg (0.03 %) nasal spray 2 spray intranasal BID-TID PRN allergy symptoms #30 mL 08/07/22 [Rx Last Taken Unknown] clindamycin HCl 150 mg capsule 300 mg PO 4X/DAY #80 CAPSULES 11/19/22 [Rx Last Taken Unknown] naproxen 500 mg tablet (Naprosyn) 500 mg PO BID PRN pain #20 tabs 11/19/22 [Rx Last Taken Unknown] tramadol 100 mg tablet 100 mg PO BID PRN pain 3 days #14 tabs 11/19/22 [Rx Last Taken Unknown] Allergy/AdvReac Type Severity Reaction Status Date / Time Penicillins Allergy Anaphylaxis Verified 11/19/22 09:09 Family History Mother Bleeding disorder Heart disease Surgical History S/P foot surgery Social History Smoking Status: Current every day smoker tobacco type: cigarettes alcohol intake: never ROS ROS ED Constitutional Constitutional ED: Denies chills or fever(s) Eyes Eyes: Denies change in vision or discharge from eye(s) ENT ENT ED: Reports other Details: Diffuse dental pain ; Denies discharge from eye(s), rhinorrhea or sore throat Cardiovascular Cardiovascular: Denies chest pain Respiratory/Chest Respiratory/Chest: Denies cough or dyspnea Gastrointestinal Gastrointestinal: Denies abdominal pain, nausea or vomiting Genitourinary Genitourinary ED: Denies dysuria Musculoskeletal Musculoskeletal: Denies back pain or extremity pain Integumentary Denies Abrasions or rash Neurologic Neurologic: Denies headache(s) or weakness Allergic/Immunologic Allergic/Immunologic ED: Denies lip swelling or urticaria EXAM Physical Exam Const Vital Signs: 11/19/22 09:10 11/19/22 10:28 Temperature 97.4 F L 97.8 F Temperature Source Temporal Pulse Rate 64 78 Respiratory Rate 18 16 Blood Pressure 139/91 H 134/76 H Blood Pressure Mean 107 Pulse Ox 100 Oxygen Delivery Method Room Air Positive well nourished and well developed General Appearance ED: well developed HEENT HEENT Narrative: No facial edema or erythema. Intraoral examination reveals the right and left third molars on the maxillary surface are broken at the gumline with exposed roots. Mild surrounding gum edema. Posterior pharynx examination is unremarkable. There is no trismus. No submandibular fullness. Eyes PERRL and EOMs intact bilaterally Neck no lymphadenopathy Chest Wall inspection of chest normal and palpation of chest normal Resp normal respiratory effort and clear to auscultation bilaterally Cardio regular rate and regular rhythm GI normal to inspection, nondistended, normoactive bowel sounds Extremity normal to inspection Neuro oriented x3 and moves all extremities Skin no rashes or lesions noted MDM MDM MDM Narrative Medical decision making narrative: Patient's OARRS report reveals no narcotics. He is given tramadol along with clindamycin and Naprosyn. I did give him a dental referral list. I advised him to contact his insurance company to get a list of dental clinics that they would cover in the general area. I also recommended he may need to look at payment plan with a dental clinic to get this taken care of. Return instructions were provided. He is nontoxic appearing with no evidence of [place]. Discharge Plan Triage Chief Complaint: Dental ED Provider: Pamela Fam Dx/Rx/DC Orders Clinical Impression: Odontalgia Instructions: ED Dental Pain Prescriptions: New clindamycin HCl 150 mg capsule 300 mg PO 4X/DAY Qty: 80 0RF naproxen [Naprosyn] 500 mg tablet 500 mg PO BID PRN (Reason: pain) Qty: 20 0RF tramadol 100 mg tablet 100 mg PO BID PRN (Reason: pain) 3 Days Qty: 14 0RF No Action dextroamphetamine-amphetamine [Adderall] 15 mg tablet 15 mg PO DAILY ipratropium bromide 21 mcg (0.03 %) spray,non-aerosol 2 spray intranasal BID-TID PRN (Reason: allergy symptoms) Qty: 30 6RF Rx Instructions: administer into each nostril chlorhexidine gluconate 0.12 % mouthwash 15 ml mucous membrane BID 60 Days Qty: 473 4RF Primary Care Provider: Ericka Tejada Referrals: Ericka Tejada DO [Primary Care Provider] - Disposition Disposition: Home, Self Care Discharge Date/Time: 11/19/22 10:45
[2022-11-19] MEDS: Clindamycin HCl 150 MG Capsule 300 MG PO (10:26)
[2022-11-19] MEDS: traMADol 50 MG Tablet 100 MG PO (10:26)
[2022-11-19 10:28] VITALS: BP 134/76; PULSE 78; RESP 16; TEMP 36.6
== END 2022-11-19 10:45 | disposition home or self-care (01) ==
LOC: ED 10:35
PROVIDERS: Emergency Provider Emergency Medicine; PCP Family Medicine; Visit Provider Emergency Medicine
DX: K08.89 Other specified disorders of teeth and supporting structures (principal); F17.210 Nicotine dependence, cigarettes, uncomplicated
CPT/HCPCS: 99283

== ENCOUNTER 2023-08-17 15:53 | Emergency (ER) | payer MEDICARE, MEDICAID, SELFPAY ==
[2023-08-17 15:54] VITALS: BP 130/86; PULSE 73; RESP 16; RESP 18; TEMP 36.9; O2SAT 100; BMI 28.5
--- NOTE | 2023-08-17 16:13 | EDS_ITS ---
HPI History of Present Illness Chief Complaint: Sore Throat [facility] Medical History ADD (attention deficit disorder) Chronic back pain Depression Nicotine addiction Rheumatoid aortitis Home Medications dextroamphetamine-amphetamine 15 mg tablet (Adderall) 15 mg PO DAILY 06/13/22 [History Last Taken Unknown] chlorhexidine gluconate 0.12 % mouthwash 15 ml mucous membrane BID dental abscesses 2 months #473 mL 08/07/22 [Rx Last Taken Unknown] ipratropium bromide 21 mcg (0.03 %) nasal spray 2 spray intranasal BID-TID PRN allergy symptoms #30 mL 08/07/22 [Rx Last Taken Unknown] clindamycin HCl 150 mg capsule 300 mg (2 x 150 mg) PO 4X/DAY #80 CAPSULES 11/19/22 [Rx Last Taken Unknown] naproxen 500 mg tablet (Naprosyn) 500 mg PO BID PRN pain #20 tabs 11/19/22 [Rx Last Taken Unknown] tramadol 100 mg tablet 100 mg PO BID PRN pain 3 days #14 tabs 11/19/22 [Rx Last Taken Unknown] Allergy/AdvReac Type Severity Reaction Status Date / Time Penicillins Allergy Anaphylaxis Verified 08/17/23 15:54 Family History Mother Bleeding disorder Heart disease Surgical History S/P foot surgery Social History Smoking Status: Current every day smoker tobacco type: cigarettes alcohol intake: never EXAM Physical Exam Const Vital Signs: 08/17/23 15:54 08/17/23 15:54 Temperature 98.5 F 98.5 F Temperature Source Oral Oral Pulse Rate 73 73 Respiratory Rate 18 16 Blood Pressure 130/86 H 130/86 H Blood Pressure Mean 100 100 Pulse Ox 100 100 Oxygen Delivery Method Room Air Room Air MDM MDM MDM Narrative Medical decision making narrative: HISTORY OF PRESENT ILLNESS: Patient presents with sore throat. Notes sore throat since this morning. Notes he just got over the flu. REVIEW OF SYSTEMS: Pertinent positives: Sore throat Pertinent negatives: Drooling, neck stiffness, shortness of breath, chest pain, vomiting PHYSICAL EXAM: Nursing triage notes reviewed, Vital signs reviewed Constitutional: please see [facility] HENT: MMM, poor dentition, dental caries, erythematous bilateral tonsils and uvula with white exudates noted. No submandibular edema or induration, uvula midline, bilateral TMs pearly [place] with no hyperemia or middle ear effusion, no mastoid tenderness, no trismus, Eyes: Pupils equal round and reactive to light, Extraocular muscles intact Neck: No stridor, no JVD, full neck ROM Lungs: Clear to auscultation, No wheezing or rales. No increased work of breathing, no conversational dyspnea, no accessory muscle use, no nasal flaring. No respiratory distress noted. The patient speaking full sentences. Heart: Regular rate and rhythm, No murmurs, No rubs and No gallops, 2+ distal pulses (radial, femoral, posterior tibial) in all extremities Skin: No rash or lesions noted MEDICAL DECISION MAKING: Chief Complaint: Sore throat External records reviewed: Last ED visit October 2022 Factors affecting care: Patient is currently prescribed clindamycin 4 times a day 80 capsules Social determinants of health: None History obtained from others: None Consults: None ALL IMAGES (IF OBTAINED) HAVE BEEN PERSONALLY REVIEWED AND INTERPRETED BY MYSELF. [facility] Narrative: The patient was hemodynamically stable, afebrile, nontoxic-appearing. The patient is speaking in full sentences. There is no signs of airway compromise at this time. No drooling, no neck stiffness. No trismus, no submandibular edema, no tenderness to palpation of the neck. Bilateral ears are clear. I considered the following differential diagnosis: Bacterial versus viral pharyngitis, RPA, [employer], Lemierre's syndrome, [place]'s angina. Exam consistent with bacterial pharyngitis will give prophylactic antimicrobials. There is no clinical evidence of RPA, [employer], Lemierre's syndrome along with and at this time. Patient will be given prophylactic antibiotics. The patient was given strict return precautions and follow-up instructions. The patient and/or family, caregivers express understanding. The patient and/or family, caregivers agrees with the plan. Total critical care time today provided was at least 0 minutes. This excludes separately billable procedures. Critical care time if documented is secondary to the patient having high probability of clinically significant/life threatening deterioration in the patient's condition which required my urgent intervention. Shared decision making: I will have a discussion with the patient and or visitors regarding risk/benefits of further testing or admission. They will be made aware of of the risk/benefits inherent in this decision they will be given the opportunity to voice understanding. Impression: 1. Bacterial pharyngitis Disposition: Discharge Discharge Plan Triage Chief Complaint: Sore Throat ED Provider: Damion Mcdowell Dx/Rx/DC Orders Prescriptions: No Action dextroamphetamine-amphetamine [Adderall] 15 mg tablet 15 mg PO DAILY ipratropium bromide 21 mcg (0.03 %) spray,non-aerosol 2 spray intranasal BID-TID PRN (Reason: allergy symptoms) Qty: 30 6RF Rx Instructions: administer into each nostril chlorhexidine gluconate 0.12 % mouthwash 15 ml mucous membrane BID 60 Days Qty: 473 4RF clindamycin HCl 150 mg capsule 300 mg PO 4X/DAY Qty: 80 0RF naproxen [Naprosyn] 500 mg tablet 500 mg PO BID PRN (Reason: pain) Qty: 20 0RF tramadol 100 mg tablet 100 mg PO BID PRN (Reason: pain) 3 Days Qty: 14 0RF Primary Care Provider: Ericka Tejada Referrals: Ericka Tejada DO [Primary Care Provider] -
--- OUTSIDE RECORDS SUMMARY | 2023-08-17 16:20 | XMS RPT_ITS | CCD ---
Author Name Unknown Address [address] [place] [address] Organization [facility] Care Team Providers Care Gis Developer Name Role Phone Ericka Reyna DO Primary Care Provider DEYVI TIMMONS Referring Unavailable ERICKA REYNA Primary Care Unavailable ERICKA REYNA Primary Care Unavailable Allergies Allergy Classification Reported Allergen(s) Allergy Type Date of Onset Reaction(s) Facility (3 sources) Penicillins; Translations: [PENICILLINS] Propensity to adverse reactions 0 Rash, Swelling [facility] (1 source) Penicillins Propensity to adverse reactions 0 Rash, Swelling [facility] Medications Current Medications Medication Drug Class(es) Dates Sig (Normalized) Sig (Original) benzonatate 100 mg oral capsule (1 source) Non-narcotic Antitussive Start: 07-31-2023 End: 08-15-2023 take 1 capsule by mouth every eight hours as needed for cough and cough benzonatate (TESSALON PERLE) 100 mg capsule Indications: Acute cough Take 1 capsule by mouth every 8 hours as needed for cough for up to 15 days. 30 capsule 0 07/31/2023 08/15/2023 Active Completed/Discontinued Medications Medication Drug Class(es) Dates Sig (Normalized) Sig (Original) acetaminophen 325 mg / oxyCODONE hydrochloride 7.5 mg oral tablet (3 sources) Opioid Agonist Start: 08-07-2021 End: 07-31-2023 oxyCODONE-acetamino phen (PERCOCET) 7.5-325 mg tablet 1 tablet every 5 hours as needed for pain 0 08/07/2021 07/31/2023 Discontinued Problems Active Problems Problem Classification Problem Date Documented Da te Episodic/Chronic Influenza (1 source) Influenza-like illness; Translations: [Influenza due to unidentified influenza virus with other respiratory manifestations] 07-31-2023 Episodic Mood disorders (3 sources) Bipolar disorder; Translations: [Bipolar disorder, unspecified] Onset: 10-21-2009 10-21-2009 Chronic Other lower respiratory disease (1 source) Cough; Translations: [Acute cough] 07-31-2023 Episodic Other lower respiratory disease (1 source) Dyspnea; Translations: [Shortness of breath] 07-31-2023 Episodic Other lower respiratory disease (1 source) Shortness of breath; Translations: [SOB (shortness of breath)] Onset: 07-31-2023 Episodic Other skin disorders (1 source) Eruption; Translations: [Rash and other nonspecific skin eruption] Episodic Unclassified (1 source) Acute cough; Translations: [Acute cough] Onset: 07-31-2023 Past or Other Problems Problem Classification Problem Date Documented Da te Episodic/Chronic Spondylosis; intervertebral disc disorders; other back problems (3 sources) Backache; Translations: [Dorsalgia, unspecified] Onset: 02-21-2010 02-21-2010 Episodic Results Test Name Value Interpretation Reference Range Facil ity Vital Signs Date Time Vital Sign Value Performing Clinician Faci lity 07-31-2023 17:47-0500 Body temperature 98.1 [degF] Deyvi Timmons MD Work Phone: [facility] 07-31-2023 17:47-0500 Body weight 86.64 kg Deyvi Timmons MD Work Phone: [facility] 07-31-2023 17:47-0500 Diastolic blood pressure 83 mm[Hg] Deyvi Timmons MD Work Phone: [facility] 07-31-2023 17:47-0500 Heart rate 68 /min Deyvi Timmons MD Work Phone: [facility] 07-31-2023 17:47-0500 Respiratory rate 22 /min Deyvi Timmons MD Work Phone: [facility] 07-31-2023 17:47-0500 SaO2% (BldA) [Mass fraction] 97 % Deyvi Timmons MD Work Phone: [facility] 07-31-2023 17:47-0500 Systolic blood pressure 149 mm[Hg] Deyvi Timmons MD Work Phone: [facility] 11-20-2021 10:44-0400 Body temperature 97.11 [degF] Luis Kapoor HEMODIALYSIS TECHNICIAN.RAYON WINDER Work Phone: [facility] 11-20-2021 10:44-0400 Body weight 93.89 kg Luisrama Kapoor HEMODIALYSIS TECHNICIAN.RAYON WINDER Work Phone: [facility] 11-20-2021 10:44-0400 Diastolic blood pressure 84 mm[Hg] [facility] HEMODIALYSIS TECHNICIAN.RAYON WINDER Work Phone: [facility] 11-20-2021 10:44-0400 Heart rate 72 /min Luisrama Kapoor HEMODIALYSIS TECHNICIAN.RAYON WINDER Work Phone: [facility] 11-20-2021 10:44-0400 Respiratory rate 16 /min [facility] HEMODIALYSIS TECHNICIAN.RAYON WINDER Work Phone: [facility] 11-20-2021 10:44-0400 SaO2% (BldA) [Mass fraction] 98 % Luisrama [facility] HEMODIALYSIS TECHNICIAN.RAYON WINDER Work Phone: [facility] 11-20-2021 10:44-0400 Systolic blood pressure 138 mm[Hg] Luisrama [facility] HEMODIALYSIS TECHNICIAN.RAYON WINDER Work Phone: [facility] Encounters Encounter Date Encounter Type Care Provider Facility Start: 07-31-2023 End: 08-01-2023 ambulatory ERICKA A MALYS Facility:[facility] Start: 07-31-2023 End: 08-01-2023 Patient encounter procedure Deyvi Timmons MD Work Phone: [facility] Procedures Date Procedure Procedure Detail Performing Clinician Start: 07-31-2023 COVID & INFLUENZA A/ B & RSV NAAT, ROUTINE Deyvi Timmons MD Work Phone: Plan of Treatment Date Care Activity Detail Author Start: 07-01-2023 Depression Assessment Depression Ass essment [facility] Start: 03-01-2023 Influenza vaccination Influenza Vacc ine (#1) [facility] Start: 03-01-2022 Influenza vaccination INFLUENZ A (Season Ended) [facility] Start: 11-20-2021 End: 01-20-2022 Herpes simplex virus+Varicella zoster virus DNA [Presence] in Unspecified specimen by STEPHANIE with probe detection [facility] Work Phone: Payers Date Payer Category Payer Medicare [employer] MEDICARE [employer] GOLD PLUS [id number] 2022-Present [phone] [address] [address] [place] [address] HMO [id number] 2022 Private Health Insurance [id number] 2021 Medicaid [facility] MEDICAID MYC ARE [facility] MEDICAID [id number] 2021-Present [phone] [address] [place] [address] Medicaid [id number] 2021 Medicaid [id number] 2021 Medicare [id number] Social History Date Type Detail Facility Start: 07-31-2023 Tobacco smoking stat [facility] Smokes tobacco daily [facility] Work Phone: History of tobacco use Cigarette Smoker [facility] Work Phone: Start: 11-20-2021 End: 07-31-2023 Alcohol intake Current non-drinker of alcohol (finding) [facility] Start: 1980 Sex Assigned At Not on file [facility] Start: 11-10-2021 End: 11-20-2021 Exposure to SARS-CoV-2 (event) Not sure [facility] Work Phone: Start: 07-31-2023 Cigarettes smoked current (pack per day) - Reported 1.5 [facility] Start: 07-31-2023 Tobacco use and exposure Smokeless tobacco non-user [facility] Start: 07-31-2023 Tobacco use panel [facility] Progress note 07-31-2023 Note Date & Type Note Facility 07-31-2023 Note HNO ID: [id number] Author: REED WAITE RT(R) Service: ? Author Type: Computed Tomography Scanner Operator Type: Progress Notes Filed: 07/31/2023 18:22 Note Text: Radiology Service Progress Note PATIENT NAME: Charline Galindo DATE OF SERVICE: July 31, 2023 TIME: 6:16 PM PATIENT IDENTITY VERIFICATION COMPLETED USING TWO (2) IDENTIFIERS: Name and Date of confirmed by patient verbally. FALL SCREENING: Has the patient had 2 falls in the last year or 1 fall with injury or currently using an Ambulatory Assistive Device (Walker, Cane, Wheelchair, Crutches, etc.)? No PATIENT GENDER DATA: Male PATIENT RELEVANT IMPLANT DATA REVIEWED: Yes PATIENT PRESENTS WITH AN IMPLANTABLE OR ATTACHED LUMITE INJECTOR: No RADIOLOGY DEPARTMENT: General X-ray: Exam(s) Completed: Chest X-Ray PERIPHERAL IV DATA: Not applicable SIGNED BY: RT Shawn(R) July 31, 2023 6:[address] [facility] Progress note 07-31-2023 Note Date & Type Note Facility 07-31-2023 Note HNO ID: [id number] Author: DEYVI TIMMONS MD Service: ? Author Type: Physician Type: Progress Notes Filed: 08/01/2023 16:03 Note Text: Patient presents with: Flu Like Symptoms: Nausea, cough, bodyaches, SOB, fatigue, chills, loss of appetite x 6 days HPI: Feeling sick for 7 days. Exposed to RSV (child) and influenza (). Positive symptoms: Cough, Shortness of breath, hot/Chills, Body Aches, Malaise, Fatigue, nausea, poor intake, Chest pain (center), Sore throat, Headache, Vomiting, Diarrhea, Negative symptoms: Sore throat, OTC: Cold Medicine, Prescribed albuterol 07/29/23 in phone message from his PCP. Denies he has had a COVID test. He smokes. Denies history of asthma or COPD. This reminds him of when he had COVID about a year ago. MEDICATIONS: Current Outpatient Medications Medication Sig amphetamine-dextroamphetamine (ADDERALL) 15 mg tablet Take 15 mg by mouth once daily. AM dextroamphetamine-amphetamine (ADDERALL) 10 mg tablet Take 10 mg by mouth every afternoon. No current facility-administered medications for this visit. ALLERGIES: ALLERGIES Allergen Reactions Penicillins Rash, Swelling VITALS: BP 149/83 Pulse 68 Temp 36.7 ?C (98.1 ?F) Resp 22 Wt 86.6 kg (191 lb) SpO2 97% PHYSICAL EXAM: GEN: mildly ill appearing, anxious HEENT: PERRL, EOMI, conjunctiva clear Ears: canals clear. TMs without erythema, bulge, or effusion Sinuses: non-tender frontal sinus, non-tender maxillary sinuses Throat: moist mucous membranes, pharyngeal erythema, no exudate Neck: supple, no thyromegaly, no lymphadenopathy HEART: regular rate and rhythm, no murmurs LUNGS: clear to auscultation, no wheezes or crackles, mild increased WOB (resolved after xray), harsh nonproductive triggered by deep inspiration CHEST: No sternal border tenderness. ASSESSMENT/PLAN: 1. Influenza-like illness - ICD9: 487.1, ICD10: J11.1 (primary diagnosis) Suspect COVID, RSV, or influenza. - COVID AND INFLUENZA A/B AND RSV NAAT, ROUTINE 2. Acute cough - ICD9: 786.2, ICD10: R05.1 3. SOB (shortness of breath) - ICD9: 786.05, ICD10: R06.02 - XR CHEST 2V FRONTAL/LAT - no pneumonia - COVID AND INFLUENZA A/B AND RSV NAAT, ROUTINE Primary concern is something to reduce his coughing. - BENZONATATE 100 MG CAPSULE Deyvi Timmons MD [facility] History of Present illness Narrative 07-31-2023 Deyvi Timmons MD - 07/31/2023 5:50 PM EST Note Date & Type Note Facility 07-31-2023 History of Presen t illness Narrative Patient presents with: Flu Like Symptoms: Nausea, cough, bodyaches, SOB, fatigue, chills, loss of appetite x 6 days HPI: Feeling sick for 7 days. Exposed to RSV (child) and influenza (). Positive symptoms: Cough, Shortness of breath, hot/Chills, Body Aches, Malaise, Fatigue, nausea, poor intake, Chest pain (center), Sore throat, Headache, Vomiting, Diarrhea, Negative symptoms: Sore throat, OTC: Cold Medicine, Prescribed albuterol 07/29/23 in phone message from his PCP. Denies he has had a COVID test. He smokes. Denies history of asthma or COPD. This reminds him of when he had COVID about a year ago. MEDICATIONS: Current Outpatient Medications Medication Sig amphetamine-dextroamphetamine (ADDERALL) 15 mg tablet Take 15 mg by mouth once daily. AM dextroamphetamine-amphetamine (ADDERALL) 10 mg tablet Take 10 mg by mouth every afternoon. No current facility-administered medications for this visit. ALLERGIES: ALLERGIES Allergen Reactions Penicillins Rash, Swelling VITALS: BP 149/83 Pulse 68 Temp 36.7 C (98.1 F) Resp 22 Wt 86.6 kg (191 lb) SpO2 97% PHYSICAL EXAM: GEN: mildly ill appearing, anxious HEENT: PERRL, EOMI, conjunctiva clear Ears: canals clear. TMs without erythema, bulge, or effusion Sinuses: non-tender frontal sinus, non-tender maxillary sinuses Throat: moist mucous membranes, pharyngeal erythema, no exudate Neck: supple, no thyromegaly, no lymphadenopathy HEART: regular rate and rhythm, no murmurs LUNGS: clear to auscultation, no wheezes or crackles, mild increased WOB (resolved after xray), harsh nonproductive triggered by deep inspiration CHEST: No sternal border tenderness. ASSESSMENT/PLAN: 1. Influenza-like illness - ICD9: 487.1, ICD10: J11.1 (primary diagnosis) Suspect COVID, RSV, or influenza. - COVID & INFLUENZA A/B & RSV NAAT, ROUTINE 2. Acute cough - ICD9: 786.2, ICD10: R05.1 3. SOB (shortness of breath) - ICD9: 786.05, ICD10: R06.02 - XR CHEST 2V FRONTAL/LAT - no pneumonia - COVID & INFLUENZA A/B & RSV NAAT, ROUTINE Primary concern is something to reduce his coughing. - BENZONATATE 100 MG CAPSULE Deyvi Timmons MD documented in this encounter [facility] Note 11-21-2021 Telephone Encounter - Cami Whitfield - 11/21/2021 2:47 PM EDTTelephone Encounter - Cami Whitfield - 11/21/2021 2:47 PM EDT Note Date & Type Note Facility 11-21-2021 Miscellaneous Notes Patient given results and verbalized understanding of instructions given. Cami Roseann ----- Message from Verena Rangel APRN.RAYON WINDER sent at 11/21/2021 2:43 PM EDT ----- Please advise patient the swab was negative for shingles or herpes. Verena Rangel APRN.RAYON WINDER documented in this encounter [facility] History of Present illness Narrative 11-20-2021 Luis Kapoor APRN.CNP - 11/20/2021 10:54 AM EDT Note Date & Type Note Facility 11-20-2021 History of Presen t illness Narrative Images from the original note were not included. Subjective HPI Nontoxic-appearing male presents urgent care chief complaint rash. Duration of symptoms 1 week. Associated symptoms burning stinging sensation. Patient states rash has became slightly itchy recently. Presents today for evaluation. Has used OTC medications this has not helped. Most predominant symptom is burning/stinging sensation. Denies any environmental or recent lifestyle changes. No recent medication or antibiotic use. Denies any fever body aches chills cough chest pain shortness of breath or change in bowel or bladder habits. Past medical history prescription medication use allergies reviewed. .Patient presents with: Rash: itching and burning rash on left side area x over 1 week off and on PAST MEDICAL HISTORY Diagnosis Date Anxiety Insomnia History reviewed. No pertinent surgical history. ALLERGIES Penicillins MEDICATIONS dextroamphetamine-amphetamine (ADDERALL) 20 mg tablet Take by mouth. oxyCODONE-acetaminophen (PERCOCET) 7.5-325 mg tablet 1 tablet every 5 hours as needed for pain diclofenac, EC, 75 mg EC tablet Take 1 tablet by mouth twice daily. For pain/inflammation. Take with food. FAMILY HISTORY Problem Relation Age of Onset Arthritis Mother Arthritis Sister Social History Tobacco Use Smoking status: Current Every Day Smoker Packs/day: 1.50 Years: 10.00 Pack years: 15.00 Types: Cigarettes Smokeless tobacco: Never Used Substance Use Topics Alcohol use: No Drug use: No BP 138/84 Pulse 72 Temp 36.2 C (97.1 F) Resp 16 Wt 93.9 kg (207 lb) SpO2 98% Review of Systems Constitutional: Negative for chills, fever and malaise/fatigue. HENT: Negative for congestion, ear discharge, ear pain, sinus pain and sore throat. Eyes: Negative for blurred vision, pain, discharge and redness. Respiratory: Negative for cough, hemoptysis, sputum production, shortness of breath, wheezing and stridor. Cardiovascular: Negative for chest pain. Gastrointestinal: Negative for abdominal pain, diarrhea, nausea and vomiting. Musculoskeletal: Negative for myalgias. Skin: Positive for itching and rash. Neurological: Negative for dizziness and headaches. Objective Physical Exam Constitutional: General: He is not in acute distress. Appearance: He is not diaphoretic. HENT: Head: Normocephalic. Mouth/Throat: Mouth: Mucous membranes are moist. Pharynx: Oropharynx is clear. No oropharyngeal exudate or posterior oropharyngeal erythema. Eyes: Conjunctiva/sclera: Conjunctivae normal. Pupils: Pupils are equal, round, and reactive to light. Cardiovascular: Rate and Rhythm: Normal rate and regular rhythm. Heart sounds: Normal heart sounds. Pulmonary: Effort: Pulmonary effort is normal. No tachypnea, accessory muscle usage or respiratory distress. Breath sounds: Normal breath sounds. No stridor. Abdominal: Palpations: Abdomen is soft. Tenderness: There is no abdominal tenderness. Musculoskeletal: Cervical back: Normal range of motion and neck supple. No rigidity or tenderness. Lymphadenopathy: Cervical: No cervical adenopathy. Skin: General: Skin is warm and dry. Comments: Erythematous base rash with crusting vesicles noted. Macular papular lesion. Rash does not cross midline. Areas of excoriation noted. No evidence of bacterial infection. No desquamation of skin. No mucosal membrane involvement. Neurological: Mental Status: He is alert and oriented to person, place, and time. ASSESSMENT/PLAN: 1. Rash - ICD9: 782.1, ICD10: R21 - HSV 1,2/VZV AMP MOLECULAR DETECT Patient diagnosed with rash. Suspicious of shingle rash. Patient did have chickenpox previously. No fluid-filled vesicles. Lesions are crusting. Outside of viral treatment window. Patient was educated on supportive therapies. Patient will follow up with primary care provider as needed. Patient was instructed to immediately proceed to emergency room for any new, worsening, or symptoms lasting longer than anticipated. The patient's clinical presentation is otherwise unremarkable at this time. Based on exam and clinical finding, the patient is stable for discharge. Plan of care was discussed with patient. Patient verbalizes understanding and agrees to plan of care. This note was generated using [employer] software. It may contain errors in wording, punctuation, or spelling. Luis Kapoor APRN.MATT documented in this encounter [facility] Evaluation note Note Date & Type Note Facility documented in this encounter [facility] Evaluation note Note Date & Type Note Facility documented in this encounter [facility] Health Concerns Infection Onset Date Last Indicated Resolved Time Influenza 07/31/2023 07/31/2023 Summary Purpose Family History No Family History Records Found Advance Directives No Advanced Directives Records Found Additional Source Comments Source Comments (unrecognize d section and content) In the event this informatio n is protected by the Federal Confidentiality of Alcohol and Drug Abuse Patient Records regulations: The Federal rules restrict any use of the information to criminally investigate or prosecute any alcohol or drug abuse patient.[facility] the event this information is protected by the Federal Confidentiality of Alcohol and Drug Abuse Patient Records regulations: The Federal rules restrict any use of the information to criminally investigate or prosecute any alcohol or drug abuse patient.[facility] the event this information is protected by the Federal Confidentiality of Alcohol and Drug Abuse Patient Records regulations: The Federal rules restrict any use of the information to criminally investigate or prosecute any alcohol or drug abuse patient.[facility] Reason for Visit (unrecogniz ed section and content) Reason Comments Results Reason Comments Flu Like Symptoms Nausea, cough, bodya ches, SOB, fatigue, chills, loss of appetite x 6 days Care Teams (unrecognized sec tion and content) Gis Developer Relationship Specialty Start Date End Date Ericka Reyna DO [address] [place] [address] PCP - General Family Practice 11/20/21 Gis Developer Relationship Specialty Start Date End Date Ericka Reyna DO [address] [address] PCP - General Family Medicine 11/20/21 (unrecognized sect ion and content) No Status Records Found INFORMATION SOURCE (unrecogn ized section and content) FOR RECORDS PERTAINING TO PATIENTS WHO ARE OR HAVE BEEN ENROLLED IN A CHEMICAL DEPENDENCY/SUBSTANCEABUSE PROGRAM, SOME INFORMATION MAY BE OMITTED. This clinical summary was aggregated from multiple sources. Caution should be exercised in using it in the provision of clinical care. This summary normalizes information from multiple sources, and as a consequence, information in this document may materially change the coding, format and clinical context of patient data. In addition, data may be omitted in some cases. CLINICAL DECISIONS SHOULD BE BASED ON THE PRIMARY CLINICAL RECORDS. [facility] [employer] [facility]. provides no warranty or guarantee of the accuracy or completeness of information in this document.
[2023-08-17] MEDS: Ibuprofen 200 MG Tablet 400 MG PO (16:50)
[2023-08-17] MEDS: dexAMETHasone 10 MG/ML Vial 6 MG IM (16:50)
[2023-08-17] MEDS: Clindamycin HCl 150 MG Capsule 300 MG PO (16:50)
[2023-08-17 16:53] VITALS: BP 130/86; PULSE 73; RESP 18; TEMP 36.9; O2SAT 100
== END 2023-08-17 16:54 | disposition home or self-care (01) ==
LOC: ED 16:18
PROVIDERS: Emergency Provider Emergency Medicine; PCP Family Medicine; Visit Provider Emergency Medicine
DX: J02.8 Acute pharyngitis due to other specified organisms (principal); F17.210 Nicotine dependence, cigarettes, uncomplicated
CPT/HCPCS: 96372; 99282

== ENCOUNTER → 2023-10-07 | Outpatient (CLI) | payer MEDICARE, MEDICAID, SELFPAY ==
[2023-10-07 08:44] LABS: Absolute Lymphocyte Count 2.33 X10^3/uL (0.83-4.51); Absolute Neutrophil Count 8.1 X10^3/uL (2.0-7.7); Basophil# 0.12 X10^3/uL; Eosinophils% 2.6 % (0-5); Hematocrit 48.6 % (40-54); Hemoglobin 16.7 g/dL (13.0-16.5); Lymphocyte # 2.33 X10^3/ul (0.83-4.51); Lymphocyte % 19.8 % (19-41); Mean Corp Hgb Conc 34.4 g/dL (32-36); Mean Corpuscular Hgb 31.5 pg (27.0-32.0); Mean Corpuscular Volume 91.7 fL (80-94); Monocyte% 6.8 % (0-10); NRBC Flagged by Analyzer 0 % (0-5); Neutrophil # 8.12 X10^3/uL (2.7-7.7); Neutrophil % 69.2 % (47-70); Platelet Count 257 K/mm3 (150-450); RBC Distribution Width CV 12.7 % (11.6-14.6); RBC Distribution Width SD 43.1 fl (35.1-43.9); White Blood Count 11.7 K/mm3 (4.4-11.0)
[2023-10-07 09:50] LABS: ALB/GLOB Ratio 1.1 RATIO (0.9-2.4); AST(SGOT) 18 U/L (15-37); Alanine Aminotransfer ALT/SGPT 25 U/L (16-61); Albumin, Serum 3.9 g/dL (3.2-5.0); Alkaline Phosphatase 85 U/L (45-117); Anion Gap 9 (5-15); BUN 16 mg/dL (7-18); BUN/Creat Ratio 15.1 RATIO (10-20); Calcium,Total 8.8 mg/dL (8.5-10.1); Chloride 106 mmol/L (98-107); Cholesterol 163 mg/dL (200); Creatinine, Serum 1.06 mg/dL (0.70-1.30); EST Glomerular Filtration Rate 81 mL/min (>60); Est Glom Filt Rate - Afr Amer 98 mL/min (>60); Globulin 3.6 g/dL (2.2-4.2); Glucose 89 mg/dL (74-106); High Density Lipoprotein 42 mg/dL; PSA,Total - Annual Screen 0.78 ng/mL (0.00-4.00); Potassium 3.8 mmol/L (3.5-5.1); Protein, Total 7.5 g/dL (6.4-8.2); Sodium Level 138 mmol/L (136-145); Triglycerides 390 mg/dL; Very Low Density Lipoprotein 78 mg/dL (5-40)
[2023-10-07 11:01] LABS: Hemoglobin A1c 5.4 % (3.8-5.6)
== END | disposition home or self-care (01) ==
LOC: LAB 08:12
PROVIDERS: PCP Family Medicine; Referring Provider Family Medicine; Visit Provider Family Medicine
DX: I10 Essential (primary) hypertension (principal); E78.5 Hyperlipidemia, unspecified; Z51.81 Encounter for therapeutic drug level monitoring; Z12.5 Encounter for screening for malignant neoplasm of prostate; Z79.899 Other long term (current) drug therapy
CPT/HCPCS: 36415; 80053; 80061; 83036; 84153; 85025; G0103

== ENCOUNTER 2024-01-19 19:19 | Emergency (ER) | payer MEDICARE, MEDICAID, SELFPAY ==
[2024-01-19 19:19] VITALS: BP 163/110; PULSE 83; RESP 18; TEMP 36.7; O2SAT 96; BMI 28.5
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
[2024-01-19 20:40] LABS: Absolute Lymphocyte Count 3.28 X10^3/uL (0.83-4.51); Absolute Neutrophil Count 7.4 X10^3/uL (2.0-7.7); Basophil% 0.8 % (0-1); Eosinophil# 0.39 X10^3/uL; Eosinophils% 3.2 % (0-5); Hematocrit 43.6 % (40-54); Hemoglobin 15.3 g/dL (13.0-16.5); Lymphocyte # 3.28 X10^3/ul (0.83-4.51); Lymphocyte % 26.9 % (19-41); Mean Corp Hgb Conc 35.1 g/dL (32-36); Mean Corpuscular Hgb 31.6 pg (27.0-32.0); Mean Corpuscular Volume 90.1 fL (80-94); Monocyte# 0.95 X10^3/uL; Monocyte% 7.8 % (0-10); NRBC Flagged by Analyzer 0 % (0-5); Neutrophil # 7.42 X10^3/uL (2.7-7.7); Neutrophil % 60.9 % (47-70); Platelet Count 256 K/mm3 (150-450); RBC Distribution Width CV 12.4 % (11.6-14.6); RBC Distribution Width SD 41.1 fl (35.1-43.9); Red Blood Count 4.84 M/mm3 (4.6-6.2); White Blood Count 12.2 K/mm3 (4.4-11.0)
[2024-01-19 20:58] LABS: Alcohol, Blood (Medical)-Serum < 3.0 mg/dL
[2024-01-19 21:00] LABS: Anion Gap 6 (5-15); BUN 18 mg/dL (7-18); BUN/Creat Ratio 18.1 RATIO (10-20); Calcium,Total 8.7 mg/dL (8.5-10.1); Chloride 108 mmol/L (98-107); Creatinine, Serum 0.99 mg/dL (0.70-1.30); EST Glomerular Filtration Rate 88 mL/min (>60); Est Glom Filt Rate - Afr Amer 106 mL/min (>60); Estimated Creatinine Clearance 99.93 ml/min; Glucose 102 mg/dL (74-106); Potassium 3.3 mmol/L (3.5-5.1); Sodium Level 139 mmol/L (136-145)
[2024-01-19 21:56] VITALS: RESP 16
[2024-01-19] MEDS: Potassium Chloride Oral Tablet 20 MEQ 40 MEQ PO (22:02)
[2024-01-19 22:08] VITALS: BP 142/86; PULSE 78; RESP 16; TEMP 36.2; O2SAT 93
[2024-01-19 22:58] VITALS: PULSE 75; RESP 16; O2SAT 94
--- NOTE | 2024-01-19 23:20 | CM.ED ---
Social Work: lawn service worker made successful phone contact with Peggy with [facility] who will take over and begin searching for placement. Pamela Woodward, MOLD SETTER, MASTER CONTROL ENGINEER
--- NOTE | 2024-01-19 23:47 | CM.ED ---
Social Work: latex foam worker made successful phone contact with Jamila with [facility] hotline and made a referral. Pamela Woodward, NURSING CLERK, FRONT END DEVELOPER JAVASCRIPT HTML CSS
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
--- NOTE | 2024-01-20 00:11 | CM.ED ---
Social Work: poultry process worker made successful phone contact with Pam LOPEZ and spoke with viraj#[id number]. poultry process worker filed a report in regards to the homicidal ideation and provided them all of the required information per Duty to report protocol. Pamela Woodward
[2024-01-20 00:49] VITALS: BP 140/80; PULSE 76; RESP 16; TEMP 36.1; O2SAT 94
--- NOTE | 2024-01-20 01:00 | ED.RN ---
ex significant other [phone]
[2024-01-20] MEDS: Ziprasidone IM 20 MG/ML VIAL IM (01:48)
[2024-01-20] MEDS: Acetaminophen 500 MG Tablet 1000 MG PO (01:59)
[2024-01-20 02:35] VITALS: BP 140/80; PULSE 76; RESP 16; TEMP 36.1; O2SAT 97
[2024-01-20 06:58] LABS: Amphetamine Urine VISTA POSITIVE (<1000 ng/mL); Barbiturate Urine VISTA NEGATIVE (< 200 ng/mL); Benzodiazepine Urine VISTA NEGATIVE (< 200 ng/mL); Cocaine Urine VISTA NEGATIVE (< 300 ng/mL); Ecstacy Urine VISTA POSITIVE (< 500 ng/mL); Methadone Urine VISTA NEGATIVE (< 300 ng/mL); PCP Urine VISTA NEGATIVE (< 25 ng/mL); THC Urine VISTA POSITIVE (< 50 ng/mL); Vista UDS pH Range 5
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
== END 2024-01-20 07:16 ==
PROVIDERS: Physician Assistant; Emergency Provider Emergency Medicine; PCP Family Medicine; Visit Provider Emergency Medicine
DX: R45.851 Suicidal ideations (principal); E87.6 Hypokalemia; F32.A Depression, unspecified; F98.8 Other specified behavioral and emotional disorders with onset usually occurring in childhood and adolescence; R45.1 Restlessness and agitation; F12.99 Cannabis use, unspecified with unspecified cannabis-induced disorder; F17.210 Nicotine dependence, cigarettes, uncomplicated; Z65.3 Problems related to other legal circumstances; Z79.899 Other long term (current) drug therapy
CPT/HCPCS: 80048; 80307; 82077; 85025; 96372; 99285; J3486

== ENCOUNTER 2024-09-20 09:11 | Emergency (ER) | payer MEDICARE, MEDICAID, SELFPAY ==
[2024-09-20 09:12] VITALS: BP 136/88; PULSE 84; RESP 26; TEMP 36.6; O2SAT 99; BMI 29.6
[2024-09-20 09:30] VITALS: BP 138/80; PULSE 72; RESP 16; TEMP 36.6; O2SAT 98
[2024-09-20] MEDS: HYDROcodone Bitartrate/Apap 5/325 Tablet PO (09:49)
[2024-09-20] MEDS: Clindamycin HCl 150 MG Capsule 300 MG PO (09:49)
[2024-09-20] MEDS: Ondansetron ODT 4 MG Tablet PO (09:49)
--- NOTE | 2024-09-20 10:00 | EX.ED.DYSGE1 ---
HPI History of Present Illness Chief Complaint: Dental Narrative Narrative: Patient is a 44-year-old male with past medical history of tobacco use, ADD, depression, rheumatoid arthritis who presented to the emergency department the chief complaint of dental pain. Patient states that his tooth has been bothering him for approximately 2 weeks that has been progressively worsening. He states that he tried to call the dentist and get in however he has been able to do so. Patient states that he had been rotating Tylenol and Advil for pain control as well as Orajel and this is not helping his pain therefore he came here further evaluation management. Patient denies any fevers. [facility] Medical History Nicotine addiction Depression Chronic back pain ADD (attention deficit disorder) Rheumatoid aortitis Home Medications ?Medication ?Instructions ?Recorded ?Last Taken ?Type dextroamphetamine-amphetamine 15 15 mg PO DAILY 06/13/22 Unknown History mg tablet (Adderall) dextroamphetamine-amphetamine 10 10 mg PO DAILY 01/19/24 Unknown History mg tablet (Adderall) clindamycin HCl 300 mg capsule 300 mg PO TID 7 days #21 caps 09/20/24 Unknown Rx ondansetron 4 mg disintegrating 4 mg PO Q6H PRN nausea and 09/20/24 Unknown Rx tablet vomiting #20 tabs oxycodone-acetaminophen 5 mg-325 1 tab PO Q6H PRN pain 2 days #8 09/20/24 Unknown Rx mg tablet (Endocet) tabs Allergy/AdvReac Type Severity Reaction Status Date / Time Penicillins Allergy Anaphylaxis Verified 09/20/24 09:15 Family History Mother Bleeding disorder Heart disease Surgical History S/P foot surgery Social History Smoking Status: Current some day smoker tobacco type: cigarettes alcohol intake: never ROS ROS ED ROS Narrative Constitutional: Denies fevers, chills, headaches Eyes ears, nose, throat: Complains of dental pain as noted above denies any difficulty swallowing Cardiovascular: Denies chest pain Neurological: Denies numbness, weakness, tingling Skin: Denies rashes or lesions EXAM Physical Exam Narrative Exam Narrative: General: Patient lying bed rest comfortably did not appear to be in acute distress Head: Atraumatic, normocephalic, Eyes ears, nose, throat: Patient has tenderness palpation over his back right gumline there is a cracked tooth noted in the back right, no periapical abscess, no sublingual swelling noted, Neck: Soft, supple, trachea midline, no concern for [place]'s angina Cardiovascular: Regular rate and rhythm Respiratory: Clear to auscultation bilaterally Neurological: Patient follow commands knew that he was at [facility] years 2024 Skin: Warm, dry, intact no rashes or lesions noted Const Vital Signs: 09/20/24 09:12 09/20/24 09:30 Temperature 98 F 97.8 F Temperature Source Temporal Oral Pulse Rate 84 72 Respiratory Rate 26 H 16 Blood Pressure 136/88 H 138/80 H Blood Pressure Mean 104 99 Pulse Ox 99 98 Oxygen Delivery Method Room Air Room Air MDM MDM MDM Narrative Medical decision making narrative: Patient is a 44-year-old male who presented to the emerged part with a chief complaint of dental pain. On the differential diagnose includes but not limited to cavity, peritonsillar disease. Patient will be given [place], Zofran and clindamycin here in the emergency department. I reevaluated the patient he is having improvement of his pain and feeling much improved he would like to go home at this point time. Patient be placed on clindamycin as well as he is advised to continue rotate Tylenol ibuprofen [id number] for mild to moderate pain he will be given a few pain pills for severe pain and Zofran he was advised not operate anything under the influence of the Percocet. He was given dental referral list and is advised that he needs to follow-up with a dentist to fix his tooth issue. He is encouraged return with worsening symptoms or concerns. He is agreeable to plan all question concerns answered he is discharged home in stable condition. Discharge Plan Triage Chief Complaint: Dental ED Provider: Farhan Escudero Dx/Rx/DC Orders Clinical Impression: Pain, dental Prescriptions: New clindamycin HCl 300 mg capsule 300 mg PO TID 7 Days Qty: 21 0RF oxycodone-acetaminophen [Endocet] 5-325 mg tablet 1 tab PO Q6H PRN (Reason: pain) 2 Days Qty: 8 0RF ondansetron 4 mg tablet,disintegrating 4 mg PO Q6H PRN (Reason: nausea and vomiting) Qty: 20 0RF No Action dextroamphetamine-amphetamine [Adderall] 15 mg tablet 15 mg PO DAILY dextroamphetamine-amphetamine [Adderall] 10 mg tablet 10 mg PO DAILY Primary Care Provider: Ericka Tejada Referrals: Ericka Tejada DO [Primary Care Provider] - Activity Restrictions/Additional Instructions: Follow-up with your doctor in outpatient setting. Return with worse symptoms or any concerns. Take antibiotics as prescribed and rotate Tylenol and ibuprofen [id number]. Use the Percocet and Zofran for severe pain do not operate anything under the influence this medication. You need to follow-up with a dentist to have your tooth taken care of. Return with any other concerns. Print Language: Austrian Disposition Disposition: Home, Self Care
== END 2024-09-20 11:30 | disposition home or self-care (01) ==
PROVIDERS: Emergency Provider Emergency Medicine; PCP Family Medicine; Visit Provider Emergency Medicine
DX: K08.89 Other specified disorders of teeth and supporting structures (principal); F17.210 Nicotine dependence, cigarettes, uncomplicated
CPT/HCPCS: 99283

== ENCOUNTER 2024-12-10 16:07 | Emergency (ER) | payer MEDICARE, MEDICAID, SELFPAY ==
[2024-12-10 16:08] VITALS: BP 164/110; PULSE 101; RESP 22; TEMP 37.1; O2SAT 99; BMI 28.0
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
[2024-12-10] MEDS: 0.9% Normal Saline (1000mL) 1,000 ML 1000 ML IV (16:31)
[2024-12-10] MEDS: Diphth,Pertuss(Acell),Tet Vac 0.5 ML Vial IM (16:31)
[2024-12-10] MEDS: Morphine 4 MG/ML Syringe IV (16:31)
[2024-12-10] MEDS: BACITRACIN 15 GM Tube 1 APPLIC TOPICAL (16:34)
[2024-12-10 16:47] LABS: Absolute Lymphocyte Count 3.19 X10^3/uL (0.83-4.51); Absolute Neutrophil Count 7.5 X10^3/uL (2.0-7.7); Basophil# 0.09 X10^3/uL; Basophil% 0.7 % (0-1); Eosinophil# 0.36 X10^3/uL; Eosinophils% 2.9 % (0-5); Hematocrit 42.4 % (40-54); Hemoglobin 14.9 g/dL (13.0-16.5); Lymphocyte # 3.19 X10^3/ul (0.83-4.51); Lymphocyte % 26.1 % (19-41); Mean Corp Hgb Conc 35.1 g/dL (32-36); Mean Corpuscular Hgb 32.1 pg (27.0-32.0); Mean Corpuscular Volume 91.4 fL (80-94); Mean Platelet Vol. 9.3 fl (6.2-12.0); Monocyte# 0.96 X10^3/uL; Monocyte% 7.9 % (0-10); NRBC Flagged by Analyzer 0 % (0-5); Neutrophil # 7.54 X10^3/uL (2.7-7.7); Neutrophil % 61.7 % (47-70); Platelet Count 243 K/mm3 (150-450); RBC Distribution Width SD 43.8 fl (35.1-43.9); Red Blood Count 4.64 M/mm3 (4.6-6.2); White Blood Count 12.2 K/mm3 (4.4-11.0)
[2024-12-10 17:08] VITALS: BP 149/87; PULSE 71; RESP 22; O2SAT 100
[2024-12-10 17:08] LABS: Anion Gap 12 (5-15); BUN 26 mg/dL (4-19); BUN/Creat Ratio 23.3 RATIO (10-20); Calcium,Total 8.8 mg/dL (7.6-11.0); Carbon Dioxide 20.3 mmol/L (21.0-32.0); Chloride 107 mmol/L (98-108); EST Glomerular Filtration Rate 85 (>60); Estimated Creatinine Clearance 102.98 ml/min (50-250); Glucose 108 mg/dL (70-99); Potassium 3.9 mmol/L (3.3-5.1); Sodium Level 139 mmol/L (133-145)
[2024-12-10] MEDS: HYDROmorphone 1 MG/ML Syringe 0.5 MG IV (17:27)
[2024-12-10 18:00] VITALS: BP 127/78; PULSE 62; RESP 14; O2SAT 98
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
[2024-12-10 19:00] VITALS: BP 124/74; PULSE 68; RESP 18; TEMP 36.8; O2SAT 99
== END 2024-12-10 19:50 | disposition designated cancer center or children's hospital (05) ==
PROVIDERS: Emergency Provider Emergency Medicine; Referring Provider Emergency Medicine; Visit Provider Emergency Medicine
DX: T23.30 Burn of third degree of hand, unspecified site (principal); T23.261A Burn of second degree of back of right hand, initial encounter; T23.262A Burn of second degree of back of left hand, initial encounter; T23.231A Burn of second degree of multiple right fingers (nail), not including thumb, initial encounter; T23.232A Burn of second degree of multiple left fingers (nail), not including thumb, initial encounter; T22.111A Burn of first degree of right forearm, initial encounter; T22.112A Burn of first degree of left forearm, initial encounter; X10.2XXA Contact with fats and cooking oils, initial encounter; Y93.G3 Activity, cooking and baking; Z23 Encounter for immunization; M54.9 Dorsalgia, unspecified; G89.29 Other chronic pain; F17.210 Nicotine dependence, cigarettes, uncomplicated
CPT/HCPCS: 80048; 85025; 90715; 99285; A4216

== ENCOUNTER 2024-12-23 09:45 | Emergency (ER) | payer MEDICARE, MEDICAID, SELFPAY ==
[2024-12-23 09:46] VITALS: BP 125/83; PULSE 72; RESP 16; TEMP 36.6; O2SAT 99; BMI 24.4
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
[2024-12-23] MEDS: oxyCODONE 5 MG Tablet PO (11:13)
[2024-12-23 11:45] VITALS: BP 134/78; PULSE 78; RESP 16; O2SAT 98
--- NOTE | 2024-12-23 12:17 | ED.RN ---
PT. INFORMED SOCIAL WORK TO SEE HIM IN ED. PT. RESPONSE, I DONT WANT TO WAIT. I AM GOOD.
[2024-12-23 12:21] VITALS: BP 128/70; PULSE 60; RESP 12; TEMP 36.6; O2SAT 100
== END 2024-12-23 12:24 | disposition home or self-care (01) ==
LOC: ED 10:50
PROVIDERS: Emergency Provider Emergency Medicine; Visit Provider Emergency Medicine
DX: Z48.01 Encounter for change or removal of surgical wound dressing (principal); F17.210 Nicotine dependence, cigarettes, uncomplicated
CPT/HCPCS: 99283